=== PATIENT | male | born 1995 | race Asian ===

== ENCOUNTER 2020-08-01 18:31 | Inpatient (IN) ==
--- NOTE | 2020-08-01 18:59 | ED Telehealth Note ---
Telehealth Telehealth Telehealth Options: 2-way audio and video For the duration of the visit, provider was performing the assessment from: The same facility as the patient After establishing a telemedicine visit, patient was: Patient was verified with two unique identifiers Total Time Spent (minutes): 8 Impression & Plan Acute alcoholic pancreatitis, Abdominal pain, Nausea and vomiting Note/Exam/Outcome Date of Service August 01, 2020 Patient utilized Telehealth today with complaint of generalized upper to left- sided abdominal pain, nausea and vomiting since approximately 9 AM this morning. The patient reports that he has vomited multiple times. He has been unable to keep any fluids or Tylenol down for the pain. The patient admits that he did drink 5 alcoholic drinks last night, including 3 beers and 2 mixed drinks. Upon further questioning, the patient does report moderate alcohol consumption. He denies history of alcohol dependence. Patient also denies history of GI disease. The pain does not radiate into the chest. He reports the pain is worse with deep breathing. Physical exam was limited secondary to this telehealth visit. Based on the patient's symptoms, I did recommend that he come into the emergency department for at least IV hydration, and to check labs. I did express my concern for possible pancreatitis or alcoholic gastritis. The patient agreed to come to the emergency department for further evaluation, and will be driving as he does not have anyone else to bring him. He does not feel that his situation warrants ambulance transport. ED Telehealth Outcome Referred to ED for in person visit Past Med/Surg History Medical History Depression Surgical History No significant past surgical history Social History Smoking Status: Never smoker Preferred Language: Danish marital status: Single current occupational status: student Feels Safe at Home: Yes Allergies No known drug allergies Home Meds Lexapro, pseudoephedrine Results & Data (ED) Laboratory Data Result diagrams: 08/01/20 19:50 08/01/20 19:50 Discharge Plan Visit Data Chief Complaint: Abdominal Pain Stated Complaint: ABD PAIN,VOMITING ED Provider: Jama Marie ED Midlevel Provider: Gerard Howe Discharge Problem: Acute alcoholic pancreatitis, Abdominal pain, Nausea and vomiting Discharge Instructions Interventions: ED Discharge Assessment Last Done: 08/02/20 00:20 Forms Stand Alone Forms: Asya Zvooq Prescriptions Prescriptions: No Action pseudoephedrine HCl [Sudafed] 60 mg Tablet 60 mg PO Q6H PRN (Reason: Congestion) RF: 0 escitalopram oxalate [Lexapro] 10 mg Tablet 15 mg PO QAM RF: 0 Referrals [facility] [Primary Care Provider[facility] - Discharge Problem: Acute alcoholic pancreatitis Qualifiers: Acute pancreatitis complication: no infection or necrosis Qualified Code(s): K85.20 - Alcohol induced acute pancreatitis without necrosis or infection Abdominal pain Qualifiers: Abdominal location: upper abdomen, unspecified Qualified Code(s): R10.10 - Upper abdominal pain, unspecified Nausea and vomiting Qualifiers: Vomiting type: unspecified Vomiting Intractability: non-intractable Qualified Code(s): R11.2 - Nausea with vomiting, unspecified
[2020-08-01] MEDS ORDERED: SODIUM CHLORIDE 0.9% 1000ML 1,000 ML IV STA (19:46)
[2020-08-01] MEDS ORDERED: FAMOTIDINE 20MG/5ML IV PUSH IV STA (19:46)
[2020-08-01] MEDS ORDERED: ONDANSETRON INJ 2 MG/ML 2 ML VIAL IV STA (19:46)
[2020-08-01] MEDS ORDERED: ACETAMINOPHEN 1000 MG/100 ML IV IV ONE (19:47)
[2020-08-01 20:03] LABS: Basophils # (auto) 0.02 K/uL (0-0.2); Basophils % (auto) 0.1 %; Hematocrit (blood only) 45.9 % (42-52); Hemoglobin 16.6 g/dL (14.0-18.0); Immature Granulocytes # (auto) 0.06 K/uL (0.00-0.02); Immature Granulocytes % (auto) 0.4 %; Lymphocytes % (auto) 6.3 %; Mean Corpuscular Hemoglobin 32.8 pg (25-34); Mean Corpuscular Hgb Conc 36.2 g/dL (32-36); Mean Corpuscular Volume 90.7 fL (80-100); Mean Platelet Volume 10.4 fL (7.4-10.4); Monocytes # (auto) 0.06 K/uL (0.11-0.59); Monocytes % (auto) 0.4 %; Neutrophils # (auto) 14.71 K/uL (1.4-6.5); Neutrophils % (auto) 92.8 %; Platelet Count 231 K/uL (130-400); RDW Coefficient of Variation 12.3 % (11.5-14.5); RDW Standard Deviation 40.9 fL (36.4-46.3); Red Blood Count 5.06 M/uL (4.7-6.1); White Blood Count 15.85 K/uL (4.8-10.8)
[2020-08-01 20:16] LABS: INR 1.1 (0.9-1.1); Partial Thromboplastin Ratio 0.9; Prothrombin Time 11.1 Seconds (9.0-12.0)
[2020-08-01 20:19] LABS: Albumin Level 4.7 gm/dl (3.4-5.0); BUN Creatinine Ratio 15.4 (10-20); Calcium 9.2 mg/dl (8.5-10.1); Creatinine Clr Calc Pharmacy 114.7 ml/min; Est GFR (African American) 114.8; Est GFR (Non-African American) 99.1; Magnesium 1.7 mg/dl (1.8-2.4); Potassium 3.8 mmol/L (3.5-5.1)
[2020-08-01 20:22] LABS: Albumin Globulin Ratio 1.3 (0.9-2); Bilirubin,Total 1.5 mg/dl (0.2-1); Globulin 3.5 gm/dl (2.5-4.0); Total Protein 8.2 gm/dl (6.4-8.2)
[2020-08-01] MEDS ORDERED: OPTIRAY 320 100ml IV ONE (20:39)
[2020-08-01] MEDS ORDERED: MoRPHine SULFATE 4 MG/ML 1 ML CARP\\VIAL IV STA ×2 (21:24→22:36)
[2020-08-01 22:44] LABS: Influenza A virus by PCR Negative (Neg); Influenza B virus by PCR Negative (Neg); RSV by PCR Negative (Neg); SARS CoV2 RNA(COVID-19) InHosp NEGATIVE (Negative)
--- NOTE | 2020-08-01 22:47 | Emergency Department Note ---
History of Present Illness General Chief complaint: Abdominal Pain Stated complaint: ABD PAIN,VOMITING Time Seen by Provider: 08/01/20 18:43 History of Present Illness Maximum Pain Intensity: 5 25-year-old male who presents to the emergency department after undergoing a Telehealth visit with me a short while ago. Patient presents with complaint of epigastric to left upper abdominal pain, nausea and vomiting. He has been unable to keep any fluids or Tylenol down for the pain. The patient admits to drinking alcohol last night. Upon further questioning, the patient reports that he does drink a moderate amount of alcohol. He denies any history of alcohol dependence. The patient denies any pain radiating into the chest or back. The patient was able to drive here for further evaluation. He currently rates his discomfort a 7 out of 10. The patient denies prior history of GI disease or abdominal surgeries. He also denies any family history of GI disease. Home Medications Medication Instructions Recorded Confirmed Type escitalopram oxalate [Lexapro] 15 mg PO QAM 08/01/20 08/01/20 History pseudoephedrine HCl [Sudafed] 60 mg PO Q6H PRN 08/01/20 08/01/20 History Allergies Allergy/AdvReac Type Severity Reaction Status Date / Time No Known Allergies Allergy Unverified 08/01/20 20:09 Past Med/Surg History Medical History Depression Surgical History No significant past surgical history Social History Smoking Status: Never smoker Preferred Language: Turkmen marital status: Single current occupational status: student Feels Safe at Home: Yes Review of Systems 10 system review was performed and was negative except for pertinent positives and negatives as indicated in history of present illness Physical Exam Vital Signs Vital Signs - 24 hr 08/01/20 19:14 08/01/20 20:00 08/01/20 21:00 Temperature 35.9 C L Temperature Source Temporal Artery Scan Pulse Rate 72 63 75 Pulse Rate from SpO2 Sensor 62 76 Respiratory Rate 18 19 14 Respiratory Effort / Characteristics Non-Labored Respiratory Depth Normal Blood Pressure 121/81 142/81 H 139/88 Blood Pressure Mean 94 101 105 Pulse Oximetry 95 97 97 Oxygen Delivery Method Room Air Sepsis Recent Fever Within 48 Hours No Sepsis New/Unexplained Change in Mental Status No Sepsis Action Taken by Nursing No Action Required 08/01/20 21:30 08/01/20 22:00 08/01/20 22:30 Temperature Temperature Source Pulse Rate 67 61 71 Pulse Rate from SpO2 Sensor 66 61 71 Respiratory Rate 12 15 15 Respiratory Effort / Characteristics Respiratory Depth Blood Pressure 147/89 H 147/90 H 148/84 H Blood Pressure Mean 108 109 105 Pulse Oximetry 97 95 97 Oxygen Delivery Method Sepsis Recent Fever Within 48 Hours Sepsis New/Unexplained Change in Mental Status Sepsis Action Taken by Nursing 08/01/20 23:00 08/01/20 23:30 08/02/20 00:00 Temperature Temperature Source Pulse Rate 64 61 65 Pulse Rate from SpO2 Sensor 65 63 68 Respiratory Rate 16 17 16 Respiratory Effort / Characteristics Respiratory Depth Blood Pressure 132/83 136/83 141/86 H Blood Pressure Mean 99 100 104 Pulse Oximetry 93 95 96 Oxygen Delivery Method Room Air Room Air Room Air Sepsis Recent Fever Within 48 Hours Sepsis New/Unexplained Change in Mental Status Sepsis Action Taken by Nursing CONSTITUTIONAL: Healthy and well nourished. Patient appears in moderate discomfort. HEENT: Normocephalic, atraumatic. No scleral icterus or conjunctival injection/pallor. Mucous membranes are dry. No tonsillar hypertrophy or exudates. NECK: Full active range of motion without discomfort. LYMPHATICS: No cervical chain adenopathy. RESPIRATORY: Clear to auscultation bilaterally with no wheezing, crackles, rhonchi or stridor. Deep breathing worsens the patient's discomfort. CARDIOVASCULAR: Regular rate and rhythm with no murmurs, rubs or gallops. GASTROINTESTINAL: Bowel sounds present in all quadrants. Patient has notable abdominal tenderness to palpation, mostly within the epigastric and left upper quadrant region. Mild guarding is noted without rebound. Negative McBurney's point tenderness. Negative CVA tenderness. MUSCULOSKELETAL: Full range of motion of all joints without discomfort. INTEGUMENTARY: No rash or other significant dermatologic conditions noted. HEMATOLOGIC: No ecchymosis or petechiae. PSYCHIATRIC: Flat affect. NEUROLOGIC: No focal neurologic deficits noted. Course Course Patient history and physical exam were performed. Nurses notes were reviewed. Vital signs were reviewed. The patient is mildly hypothermic, otherwise is not tachycardic, hypertensive or hypoxic. IV access was established, and labs were drawn. The patient was hydrated with a liter normal saline, and administered IV Zofran, Pepcid and Tylenol. Review of labs shows a moderate leukocytosis with left shift and bandemia. The patient has a significantly elevated lipase of 10,845. Remaining CMP is otherwise grossly normal with normal LFTs. Ethyl alcohol level was undetectable. COVID-[address] with IV contrast of the abdomen and pelvis shows evidence for interstitial pancreatitis. Findings were discussed with the patient, who reported worsening symptoms. He did request something stronger for the pain, and was administered IV morphine 4 mg x 2 doses. Given his symptoms, I did recommend hospitalist evaluation, and the patient was in agreement. The case was discussed with Dr. Marie, ED attending physician, who agrees with this plan of care. The case was then further discussed with the [facility] hospitalist service. Please see their dictation for further treatment and final disposition. Administered Medications Lactated Ringer's (Lr) 1,500 mls @ 999 mls/hr IV .Q1H31M ONE Stop: 08/02/20 00:37 Last Admin: 08/01/20 23:35 Dose: 999 mls/hr Documented by: [id number] Discontinued Medications Acetaminophen (Acetaminophen 1000 Mg/100 Ml Iv) 1,000 mg IV ONE ONE Stop: 08/01/20 19:48 Last Admin: 08/01/20 19:51 Dose: 1,000 mg Documented by: [id number] Famotidine (Famotidine 20mg/5ml Iv Push) 20 mg IV ONE STA Stop: 08/01/20 19:47 Last Admin: 08/01/20 19:51 Dose: 20 mg Documented by: [id number] Sodium Chloride (Nss 1000ml) 1,000 mls @ 999 mls/hr IV .Q1H1M STA Stop: 08/01/20 20:46 Last Infusion: 08/01/20 20:56 Dose: 0 mls/hr Documented by: [id number] Admin: 08/01/20 19:51 Dose: 999 mls/hr Documented by: [id number] Ioversol (Ioversol 100ml) 94 ml IV ONCE ONE Stop: 08/01/20 20:40 Last Admin: 08/01/20 20:39 Dose: 94 ml Documented by: [id number] Morphine Sulfate (Morphine Sulfate 4 Mg/Ml 1 Ml Carp\Vial) 4 mg IV NOW STA Stop: 08/01/20 21:25 Last Admin: 08/01/20 21:46 Dose: 4 mg Documented by: [id number] Morphine Sulfate (Morphine Sulfate 4 Mg/Ml 1 Ml Carp\Vial) 4 mg IV NOW STA Stop: 08/01/20 22:37 Last Admin: 08/01/20 22:41 Dose: 4 mg Documented by: [id number] Ondansetron HCl (Ondansetron Inj 2 Mg/Ml 2 Ml Vial) 4 mg IV NOW STA Stop: 08/01/20 19:47 Last Admin: 08/01/20 19:51 Dose: 4 mg Documented by: [id number] Medical Decision Making Medical Records Attestation: I reviewed the patient's medical records. Home Medications Current Medication List: was personally reviewed by me Laboratory Data Attestation: I reviewed the patient's lab results. Result diagrams: 08/01/20 19:50 08/01/20 19:50 Lab Results 08/01/20 08/01/20 08/01/20 Range/Units 19:50 19:50 19:50 WBC 15.85 H (4.8-10.8) K/uL RBC 5.06 (4.7-6.1) M/uL Hgb 16.6 (14.0-18.0) g/dL Hct 45.9 (42-52) % MCV 90.7 (80-100) fL MCH 32.8 (25-34) pg MCHC 36.2 H (32-36) g/dL RDW Std Deviation 40.9 (36.4-46.3) fL RDW Coeff of Jl 12.3 (11.5-14.5) % Plt Count 231 (130-400) K/uL MPV 10.4 (7.4-10.4) fL Immature Gran % (Auto) 0.4 % Neut % (Auto) 92.8 % Lymph % (Auto) 6.3 % [place] % (Auto) 0.4 % Eos % (Auto) 0.0 % Baso % (Auto) 0.1 % Neut # (Auto) 14.71 H (1.4-6.5) K/uL Lymph # (Auto) 1.00 L (1.2-3.4) K/uL [place] # (Auto) 0.06 L (0.11-0.59) K/uL Eos # (Auto) 0.00 (0-0.5) K/uL Baso # (Auto) 0.02 (0-0.2) K/uL Immature Gran # (Auto) 0.06 H (0.00-0.02) K/uL PT 11.1 (9.0-12.0) Seconds INR 1.1 (0.9-1.1) APTT 23.0 (21.0-31.0) Seconds PTT Ratio 0.9 Sodium 138 (136-145) mmol/L Potassium 3.8 (3.5-5.1) mmol/L Chloride 106 (98-107) mmol/L Carbon Dioxide 24 (21-32) mmol/L Anion Gap 8.0 (3-11) BUN 16 (7-18) mg/dl Creatinine 1.03 (0.6-1.4) mg/dl Est Cr Clr Drug Dosing 114.7 ml/min Est GFR ( Amer) 114.8 Est GFR (Non-Af Amer) 99.1 BUN/Creatinine Ratio 15.4 (10-20) Glucose 115 H (70-99) mg/dl Calcium 9.2 (8.5-10.1) mg/dl Magnesium 1.7 L (1.8-2.4) mg/dl Total Bilirubin 1.5 H (0.2-1) mg/dl AST 30 (15-37) U/L ALT 55 (12-78) U/L Alkaline Phosphatase 80 (45-117) U/L Lactate Dehydrogenase (87-241) U/L Total Protein 8.2 (6.4-8.2) gm/dl Albumin 4.7 (3.4-5.0) gm/dl Globulin 3.5 (2.5-4.0) gm/dl Albumin/Globulin Ratio 1.3 (0.9-2) Lipase 20542 H (73-393) U/L Ethyl Alcohol mg/dL (0-3) mg/dl COVID-19 Eval Order SARS-CoV-2 (PCR) (Negative) Influenza Type A (PCR) (Neg) Influenza Type B (PCR) (Neg) RSV (RT-PCR) (Neg) 08/01/20 08/01/20 08/01/20 Range/Units 21:48 21:48 22:22 WBC (4.8-10.8) K/uL RBC (4.7-6.1) M/uL Hgb (14.0-18.0) g/dL Hct (42-52) % MCV (80-100) fL MCH (25-34) pg MCHC (32-36) g/dL RDW Std Deviation (36.4-46.3) fL RDW Coeff of Jl (11.5-14.5) % Plt Count (130-400) K/uL MPV (7.4-10.4) fL Immature Gran % (Auto) % Neut % (Auto) % Lymph % (Auto) % [place] % (Auto) % Eos % (Auto) % Baso % (Auto) % Neut # (Auto) (1.4-6.5) K/uL Lymph # (Auto) (1.2-3.4) K/uL [place] # (Auto) (0.11-0.59) K/uL Eos # (Auto) (0-0.5) K/uL Baso # (Auto) (0-0.2) K/uL Immature Gran # (Auto) (0.00-0.02) K/uL PT (9.0-12.0) Seconds INR (0.9-1.1) APTT (21.0-31.0) Seconds PTT Ratio Sodium (136-145) mmol/L Potassium (3.5-5.1) mmol/L Chloride (98-107) mmol/L Carbon Dioxide (21-32) mmol/L Anion Gap (3-11) BUN (7-18) mg/dl Creatinine (0.6-1.4) mg/dl Est Cr Clr Drug Dosing ml/min Est GFR ( Amer) Est GFR (Non-Af Amer) BUN/Creatinine Ratio (10-20) Glucose (70-99) mg/dl Calcium (8.5-10.1) mg/dl Magnesium (1.8-2.4) mg/dl Total Bilirubin (0.2-1) mg/dl AST (15-37) U/L ALT (12-78) U/L Alkaline Phosphatase (45-117) U/L Lactate Dehydrogenase 220 (87-241) U/L Total Protein (6.4-8.2) gm/dl Albumin (3.4-5.0) gm/dl Globulin (2.5-4.0) gm/dl Albumin/Globulin Ratio (0.9-2) Lipase (73-393) U/L Ethyl Alcohol mg/dL (0-3) mg/dl COVID-19 Eval Order CovFluRsv at [facility] SARS-CoV-2 (PCR) NEGATIVE (Negative) Influenza Type A (PCR) Negative (Neg) Influenza Type B (PCR) Negative (Neg) RSV (RT-PCR) Negative (Neg) 08/01/20 Range/Units 22:22 WBC (4.8-10.8) K/uL RBC (4.7-6.1) M/uL Hgb (14.0-18.0) g/dL Hct (42-52) % MCV (80-100) fL MCH (25-34) pg MCHC (32-36) g/dL RDW Std Deviation (36.4-46.3) fL RDW Coeff of Jl (11.5-14.5) % Plt Count (130-400) K/uL MPV (7.4-10.4) fL Immature Gran % (Auto) % Neut % (Auto) % Lymph % (Auto) % [place] % (Auto) % Eos % (Auto) % Baso % (Auto) % Neut # (Auto) (1.4-6.5) K/uL Lymph # (Auto) (1.2-3.4) K/uL [place] # (Auto) (0.11-0.59) K/uL Eos # (Auto) (0-0.5) K/uL Baso # (Auto) (0-0.2) K/uL Immature Gran # (Auto) (0.00-0.02) K/uL PT (9.0-12.0) Seconds INR (0.9-1.1) APTT (21.0-31.0) Seconds PTT Ratio Sodium (136-145) mmol/L Potassium (3.5-5.1) mmol/L Chloride (98-107) mmol/L Carbon Dioxide (21-32) mmol/L Anion Gap (3-11) BUN (7-18) mg/dl Creatinine (0.6-1.4) mg/dl Est Cr Clr Drug Dosing ml/min Est GFR ( Amer) Est GFR (Non-Af Amer) BUN/Creatinine Ratio (10-20) Glucose (70-99) mg/dl Calcium (8.5-10.1) mg/dl Magnesium (1.8-2.4) mg/dl Total Bilirubin (0.2-1) mg/dl AST (15-37) U/L ALT (12-78) U/L Alkaline Phosphatase (45-117) U/L Lactate Dehydrogenase (87-241) U/L Total Protein (6.4-8.2) gm/dl Albumin (3.4-5.0) gm/dl Globulin (2.5-4.0) gm/dl Albumin/Globulin Ratio (0.9-2) Lipase (73-393) U/L Ethyl Alcohol mg/dL < 3.0 (0-3) mg/dl COVID-19 Eval Order SARS-CoV-2 (PCR) (Negative) Influenza Type A (PCR) (Neg) Influenza Type B (PCR) (Neg) RSV (RT-PCR) (Neg) Imaging Data Attestation: I personally reviewed and interpreted this imaging study as follows: My Impression: My interpretation of a CT with IV contrast of the abdomen and pelvis shows evidence for acute pancreatitis, and no other acute intra-abdominal findings. [facility] report was also reviewed, and is attached for reader convenience. Our hospital radiologist report is pending. Radiologist's Impression: CT ABDOMEN & PELVIS With Contrast: Acute interstitial pancreatitis. No grossly evident parenchymal necrosis. Moderate inflammatory changes. No obstructing stone or ductal dilatation. No loculated fluid collection. Hepatic steatosis. Remainder of the solid organs and GI tract are unremarkable. Normal appendix. Radiologist: Humberto Eaton MD Blood Pressure Blood Pressure Findings: Normal blood pressure MDM Narrative Patient presents to the emergency department with complaint of epigastric/left upper quadrant abdominal pain, nausea and vomiting. The patient did drink a moderate amount of alcohol last night, and does admit to moderate alcohol use. Patient does have an elevated lipase and CT findings consistent with acute pancreatitis. Ethyl alcohol levels at the time of hospital evaluation was undetectable. Additional laboratories are not suggestive of cholecystitis or hepatitis. CT imaging does not show evidence for acute diverticulitis, appendicitis or other acute intra-abdominal findings. Impression & Plan Acute alcoholic pancreatitis, Abdominal pain, Nausea and vomiting Discharge Plan Visit Data Chief Complaint: Abdominal Pain Stated Complaint: ABD PAIN,VOMITING ED Provider: Jama Marie ED Midlevel Provider: Gerard Howe Discharge Problem: Acute alcoholic pancreatitis, Abdominal pain, Nausea and vomiting Discharge Instructions Interventions: ED Discharge Assessment Last Done: 08/02/20 00:20 Forms Stand Alone Forms: [employer] Prescriptions Prescriptions: No Action pseudoephedrine HCl [Sudafed] 60 mg Tablet 60 mg PO Q6H PRN (Reason: Congestion) RF: 0 escitalopram oxalate [Lexapro] 10 mg Tablet 15 mg PO QAM RF: 0 Referrals Referrals: [place] [Primary Care Provider] - Discharge Problem: Acute alcoholic pancreatitis Qualifiers: Acute pancreatitis complication: no infection or necrosis Qualified Code(s): K85.20 - Alcohol induced acute pancreatitis without necrosis or infection Abdominal pain Qualifiers: Abdominal location: upper abdomen, unspecified Qualified Code(s): R10.10 - Upper abdominal pain, unspecified Nausea and vomiting Qualifiers: Vomiting type: unspecified Vomiting Intractability: non-intractable Qualified Code(s): R11.2 - Nausea with vomiting, unspecified
[2020-08-01] MEDS ORDERED: LACTATED RINGER'S 1,500 ML IV ONE (23:07)
--- NOTE | 2020-08-01 23:08 | History & Physical Report ---
Date of Service August 01, 2020 Assessment & Plan (1) Acute pancreatitis: Patient is a 25 year old male with PMHx exercise induced asthma, Depression, and Allergic rhinitis that presents with nausea, vomiting, and abdominal pain since 9AM on day of admission. Acute Pancreatitis secondary to Alcohol Abuse -CT scan [facility] noting acute interstitial pancreatitis without evidence of necrosis or loculated fluid collection. -Lipase on admission [id number] in addition to elevated bilirubin 1.5 -[place] Criteria 0 on admission with no leukocytosis, age <55, glucose <200, AST< 2250, LDH <350, can recheck 48 hours into admission if still present. -Given IVF 30ml/kg in the ED -Will continue with fluids LR 200ml/hr x3L -Pain control morphine IV -Zofran PRN nausea -NPO with sips and chips at this time, but advance diet as tolerated. Alcohol Abuse -Last drink midnight of 08/01/20 -AWSS protocol with ativan pushes PRN -Folate and B12 labs in the AM -Continue to monitor for signs of withdrawal -Alcohol on admission <3 Hypomagnesemia -1.7 on admission -Will replete via IV 2g Mag -Recheck in AM Depression -Continue home Lexapro Dispo: Med/Surg for IVF, monitoring for alcohol withdrawal, and IV pain medication FEN: NPO OK for sips and ice chips and meds, advance as tolerated DVT: Lovenox Code: Full (2) Abdominal pain: (3) Depression: (4) Nausea and vomiting: (5) Alcohol abuse: History of Present Illness Chief Complaint: Abdominal Pain Primary Care Provider: [facility] Patient is a 25 year old male with PMHx exercise induced asthma, Depression, and Allergic rhinitis that presents with nausea, vomiting, and abdominal pain since 9AM on day of admission. Patient notes that he has had similar pain in the past a few months ago and [facility] on day 3 of 5 of his pain at that time. He states that he does have a history of alcohol use, typically 1-2 drinks every other day, however, for the past week has been drinking 4-5 beers/mixed drinks daily due to increased stress of his school work. 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 He notes that his last drink was at midnight of 08/01/20 (~22 hours prior to ED arrival). Currently patient notes that his abdominal pain is a 5/10, improved from 7/10 on arrival, and that his nausea has resolved. He denies any chest pain, chest pressure, SOB, fever, chills, headache, visual changes. Med Hx: Exercise induced Asthma, Depression, Allergic rhinitis Surg Hx: R ankle repair Soc Hx: No tobacco or illicit drug use. Typically has 1-2 drinks every other day, more recently 4-5 drinks daily Allergies Allergy/AdvReac Type Severity Reaction Status Date / Time No Known Allergies Allergy Unverified 08/01/20 20:09 Home Medications Medication Instructions Recorded Confirmed Type escitalopram oxalate [Lexapro] 15 mg PO QAM 08/01/20 08/01/20 History pseudoephedrine HCl [Sudafed] 60 mg PO Q6H PRN 08/01/20 08/01/20 History Past Med/Surg History Medical History Depression Surgical History No significant past surgical history Social History Smoking Status: Never smoker Second Hand Exposure: No; Do You Dip or Chew Tobacco: No; Hx Alcohol Use: Yes Alcohol type: beer and hard liquor Hx Substance Use: No Preferred Language: Icelandic Communication Ability: Effective 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 Beliefs That Will Affect Care: None marital status: Single Current Living Situation: Alone current occupational status: student Other Information That Helps Us Care for You: No Feels Safe at Home: Yes Safety Concerns: Feels Safe At This Time Assistive Devices: None Review of Systems Review of Systems: All systems reviewed & are unremarkable except as noted in Subjective Physical Exam Constitutional: WD/WN, vitals as above Eyes: PERRL, conjunctivae normal, anicteric sclerae ENMT: external ear and nose normal, oropharynx normal Respiratory: normal respiratory effort, lungs clear to auscultation Cardiovascular: RRR, no murmur, no edema Gastrointestinal (Abdomen): Inspection/Auscultation: abdomen normal to inspection and normal bowel sounds; abdomen not distended Percussion/Palpation: + abdomen tender (TTP throughout worse in the LUQ ) and abdomen soft; no guarding and abdomen not rigid Musculoskeletal: no cyanosis or clubbing, extremities motor strength 5/5 Skin: no rashes, warm and dry Neurologic: PERRL, EOMI, accommodation nl, no face palsy, no dysarthria Psychiatric: A+Ox3, euthymic affect Results & Data Results & Data ([place]) Vital Signs (Past 12 Hours) Vital Signs Temp Pulse Resp BP Pulse Ox 08/01/20 22:30 71 15 148/84 H 97 08/01/20 22:00 61 15 147/90 H 95 08/01/20 21:30 67 12 147/89 H 97 08/01/20 21:00 75 14 139/88 97 08/01/20 20:00 63 19 142/81 H 97 08/01/20 19:14 35.9 C L 72 18 121/81 95 Code Status & VTE Plan VTE Prophylaxis Plan VTE Prophylaxis will be ordered: Yes Supervising Physician Co-Signing Physician Notes Attending addendum: I have physically seen this patient, have supervised the medical residents activities, and agree with the H&P unless as otherwise noted. Assessment and Plan: Alcoholic pancreatitis- CT suggestive of acute interstitial pancreatitis. Lipase upon admission 10,845 Adjust IV fluid bolus to stand at 30 mils per kilo, and then continue LR at 200 mils per hour Zofran 4 mg IV every 6 hours as needed Famotidine 40 mg IV every 12 hours Alcohol abuse- AWSS protocol with IV Ativan Thiamine 100 mg p.o. every morning Folic acid 1 mg p.o. every morning Nephrocaps 1 p.o. daily Counseling Remaining orders and notations as noted Resident Activity Tracking Resident Involvement: Resident Care Provided Care Provided: Adult Hospital Medicine
[2020-08-02] MEDS ORDERED: LORazepam 1 MG/2 ML VIAL IV PRN (00:32)
[2020-08-02] MEDS ORDERED: MoRPHine SULFATE 2 MG/ML CARP IV PRN (00:32)
[2020-08-02] MEDS ORDERED: ONDANSETRON INJ 2 MG/ML 2 ML VIAL IV PRN (00:32)
[2020-08-02] MEDS: LACTATED RINGER'S 1,000 ML IV SCH ×5 (00:41→22:00)
[2020-08-02] MEDS: MoRPHine SULFATE 4 MG/ML 1 ML CARP\\VIAL IV PRN ×2 (00:47→04:29)
[2020-08-02] MEDS: MAGNESIUM SULFATE / D5W 1 GM/100 ML BAG IV SCH ×2 (00:47→02:37)
[2020-08-02 06:09] LABS: Basophils # (auto) 0.01 K/uL (0-0.2); Basophils % (auto) 0.1 %; Eosinophils # (auto) 0.01 K/uL (0-0.5); Eosinophils % (auto) 0.1 %; Hematocrit (blood only) 42.4 % (42-52); Hemoglobin 14.8 g/dL (14.0-18.0); Immature Granulocytes # (auto) 0.05 K/uL (0.00-0.02); Immature Granulocytes % (auto) 0.3 %; Lymphocytes # (auto) 1.64 K/uL (1.2-3.4); Lymphocytes % (auto) 10.1 %; Mean Corpuscular Hemoglobin 32.3 pg (25-34); Mean Corpuscular Hgb Conc 34.9 g/dL (32-36); Mean Corpuscular Volume 92.6 fL (80-100); Mean Platelet Volume 10.6 fL (7.4-10.4); Monocytes # (auto) 0.84 K/uL (0.11-0.59); Monocytes % (auto) 5.2 %; Neutrophils # (auto) 13.71 K/uL (1.4-6.5); Neutrophils % (auto) 84.2 %; Platelet Count 184 K/uL (130-400); RDW Coefficient of Variation 12.5 % (11.5-14.5); RDW Standard Deviation 42.2 fL (36.4-46.3); Red Blood Count 4.58 M/uL (4.7-6.1); White Blood Count 16.26 K/uL (4.8-10.8)
--- NOTE | 2020-08-02 06:32 | CT Scan Report ---
CT abd pelvis IV con only CLINICAL HISTORY: Upper quadrant abdominal pain COMPARISON STUDY: None. TECHNIQUE: The patient was scanned in a dynamic helical fashion during intravenous administration of 94 cc of Optiray 320 A dose lowering technique was utilized adhering to the principles of ALARA. CT DOSE: 430.12 mGy.cm FINDINGS: Lower chest: The heart is normal in size and configuration, without pericardial effusion. The lung ba ses and pleural spaces are clear. Liver: There is probable hepatic steatosis. No focal hepatic masses are visualized. The hepatic and p ortal veins appear patent. Gallbladder: Unremarkable. Spleen: Normal in size and attenuation. Pancreas: The pancreas appears edematous. There is peripancreatic fluid. The findings are consistent with acute interstitial pancreatitis. Adrenal glands: Unremarkable. Kidneys: There is symmetric renal cortical enhancement. The kidneys are normal in size without hydron ephrosis. Bowel: There are no transition zones indicate bowel obstruction. There is no evidence of acute divert iculitis. The appendix is normal. Peritoneum: There is a small amount of free pelvic fluid. There is a small amount of fluid within the paracolic gutters. Vasculature: The abdominal aorta is normal in course and caliber. Adenopathy: None. Pelvic viscera: The bladder, and pelvic viscera are unremarkable. Skeletal structures: No destructive osseous lesions are seen. IMPRESSION: 1. No evidence of bowel obstruction. No evidence of free air 2. Normal appendix 3. CT findings indicative of acute interstitial pancreatitis. Correlation with amylase and lipase rec ommended 4. Mild hepatic steatosis ACT 112: Negative or not required by law. Electronically signed by: Eros Wilson M.D. 08/02/2020 6:30 AM
[2020-08-02 06:45] LABS: Albumin Level 3.7 gm/dl (3.4-5.0); BUN Creatinine Ratio 19.3 (10-20); Calcium 8.1 mg/dl (8.5-10.1); Creatinine Clr Calc Pharmacy 161.7 ml/min; Est GFR (African American) 142.6; Est GFR (Non-African American) 123.1; Magnesium 2.3 mg/dl (1.8-2.4); Potassium 3.6 mmol/L (3.5-5.1)
[2020-08-02 06:48] LABS: Albumin Globulin Ratio 1.2 (0.9-2); Bilirubin,Total 1.5 mg/dl (0.2-1); Total Protein 6.7 gm/dl (6.4-8.2)
[2020-08-02 07:03] LABS: Folate (Folic Acid) 6.9 ng/ml (>5.38)
[2020-08-02] MEDS: ESCITALOPRAM OXALATE 10 MG TAB PO SCH (08:35)
[2020-08-02] MEDS: ENOXAPARIN INJ 40 MG/0.4 ML SYR SQ SCH (08:35)
--- NOTE | 2020-08-02 17:25 | Hospitalist Progress Note ---
Date of Service August 02, 2020 Assessment & Plan (1) Acute pancreatitis: Patient's Eddie score is 2 No vomiting or nausea Currently not on antibiotics IV fluids have timed out. We will restart lactated Ringer's at 200 mL/h No hypercalcemia Follow patient's LFTs, lipase, PRP, CBC Check an amylase in the morning Convert morphine to Dilaudid to decrease risk of obstipation If pain not controlled with as needed dosing of Dilaudid, low threshold for MUSHR[employer]OM F[employer]ER with Dilaudid If patient develops fever or Eddie score increases, consider blood cultures, urine culture, LDH (2) Alcohol abuse: Patient states occasional use of alcohol Previous use also resulted in pancreatitis and hospitalization Advised patient to abstain completely from ethanol ingestion (3) Depression: Appeared emotionally stable at the time of my examination Continue Lexapro (4) DVT prophylaxis: Ambulate as tolerated Out of bed to chair as tolerated Lovenox 40 mg subcu daily Admission and Anticipated Discharge Date Admission Date: August 01, 2020 Subjective Attending: Dr. Sanchez Patient seen and examined at bedside. He continues to have significant abdominal pain. He has difficulty sitting up secondary to pain. He denies any fever or chills. He has no diarrhea. He denies any nausea or vomiting. He states that he Had pancreatitis one other time also associated with drinking.He has no history of malignancy. No history of pancreatic cancer with his family.He has no other acute complaints at this time. Review of Systems Review of Systems: All systems reviewed & are unremarkable except as noted in Subjective Physical Exam Physical Exam: GENERAL : Patient appears ill. He has difficulty sitting up secondary to abdominal pain. EYES: No icterus, gaze conjugate NOSE: No evidence of epistaxis MOUTH: No lesions or candidiasis NECK: Supple LUNGS: CTA B/L, no wheezes, rales or rhonchi HEART: Regular, rate controlled ABDOMEN: Soft, ND, BS Present. Tender to light palpation in the left upper quadrant. Also tender to percussion EXTREMITIES: No LE edema, pedal pulses intact NEURO: A&OX3 Results & Data Results & Data ([facility]) Vital Signs (Past 12 Hours) Vital Signs Temp Pulse Resp BP Pulse Ox 08/02/20 15:02 37.1 C 82 16 127/76 96 08/02/20 07:22 36.4 C L 67 16 136/78 96 Laboratory Results 08/02/20 05:45 08/02/20 05:45 Laboratory Tests 08/01/20 08/02/20 19:50 05:45 Lipase [address] H [address] abd pelvis IV con only CLINICAL HISTORY: Upper quadrant abdominal pain COMPARISON STUDY: None. TECHNIQUE: The patient was scanned in a dynamic helical fashion during intravenous administration of 94 cc of Optiray 320 A dose lowering technique was utilized adhering to the principles of ALARA. CT DOSE: 430.12 mGy.cm FINDINGS: Lower chest: The heart is normal in size and configuration, without pericardial effusion. The lung bases and pleural spaces are clear. Liver: There is probable hepatic steatosis. No focal hepatic masses are visualized. The hepatic and portal veins appear patent. Gallbladder: Unremarkable. Spleen: Normal in size and attenuation. Pancreas: The pancreas appears edematous. There is peripancreatic fluid. The findings are consistent with acute interstitial pancreatitis. Adrenal glands: Unremarkable. Kidneys: There is symmetric renal cortical enhancement. The kidneys are normal in size without hydronephrosis. Bowel: There are no transition zones indicate bowel obstruction. There is no evidence of acute diverticulitis. The appendix is normal. Peritoneum: There is a small amount of free pelvic fluid. There is a small amount of fluid within the paracolic gutters. Vasculature: The abdominal aorta is normal in course and caliber. Adenopathy: None. Pelvic viscera: The bladder, and pelvic viscera are unremarkable. Skeletal structures: No destructive osseous lesions are seen. IMPRESSION: 1. No evidence of bowel obstruction. No evidence of free air 2. Normal appendix 3. CT findings indicative of acute interstitial pancreatitis. Correlation with amylase and lipase recommended 4. Mild hepatic steatosis Electronically signed by: Eros Wilson M.D. 08/02/2020 6:30 AM PG Care Time/CCT Total # of Minutes Spent Total Time Spent with Patient: Total time spent is greater than 50% in coordination of care (as documented) at patient's floor/unit and/or counseling patient: Coding Level of Care Code 10078 Subseq Hosp Care Lvl 2 Diagnoses Acute pancreatitis K85.90 Alcohol abuse F10.10 Depression F32.9 DVT prophylaxis Z29.9 Time Spent (min) 30
[2020-08-02] MEDS: HYDROmorphone INJ 0.5 MG/0.5 ML SYR IV PRN (18:04)
[2020-08-02] MEDS: SENNA 8.6 MG TAB PO SCH (18:04)
[2020-08-02] MEDS: DOCUSATE SODIUM 100 MG CAP PO SCH (20:10)
[2020-08-03] MEDS: HYDROmorphone INJ 0.5 MG/0.5 ML SYR IV PRN ×2 (00:24→12:31)
[2020-08-03] MEDS: ACETAMINOPHEN 325 MG TAB PO PRN ×4 (00:25→21:09)
[2020-08-03] MEDS: metroNIDAZOLE 500 MG/100 ML BAG IV SCH ×4 (00:48→23:38)
[2020-08-03] MEDS: CEFEPIME 2,000 MG in SYRINGE 0 ML IV SCH ×3 (00:48→23:38)
[2020-08-03] MEDS: LACTATED RINGER'S 1,000 ML IV SCH ×2 (03:20→09:02)
[2020-08-03 03:27] LABS: Appearance Urine Clear (Clear); Bacteria Urine Automated Negative (Negative); Bilirubin Urine Negative (Negative); Blood Urine Negative (Negative); Color Urine Orange; Glucose Urine UA Negative (Negative); Ketones Urine Negative (Negative); Leukocyte Esterase Urine Negative (Negative); Nitrite Urine Negative (Negative); RBC Urine Automated 0-4 /hpf (0-4); Specific Gravity Urine 1.023 (1.000-1.030); Urobilinogen Urine Negative (Negative); pH Urine 7.5 (4.5-7.5)
[2020-08-03 03:29] LABS: Protein Urine 1+ (Negative)
[2020-08-03 05:44] LABS: Hematocrit (blood only) 38.6 % (42-52); Hemoglobin 13.3 g/dL (14.0-18.0); Mean Corpuscular Hemoglobin 32.4 pg (25-34); Mean Corpuscular Hgb Conc 34.5 g/dL (32-36); Mean Corpuscular Volume 93.9 fL (80-100); Mean Platelet Volume 10.4 fL (7.4-10.4); Platelet Count 167 K/uL (130-400); RDW Coefficient of Variation 12.7 % (11.5-14.5); RDW Standard Deviation 43.4 fL (36.4-46.3); Red Blood Count 4.11 M/uL (4.7-6.1); White Blood Count 15.26 K/uL (4.8-10.8)
--- NOTE | 2020-08-03 06:11 | Billing Data ---
Date of Service August 03, 2020 Coding Level of Care Code 73083 Initial Inpt Care Lvl 3
[2020-08-03 06:15] LABS: BUN Creatinine Ratio 11.4 (10-20); Calcium 7.8 mg/dl (8.5-10.1); Creatinine Clr Calc Pharmacy 163.7 ml/min; Est GFR (African American) 143.4; Est GFR (Non-African American) 123.7; Potassium 3.6 mmol/L (3.5-5.1)
[2020-08-03 06:21] LABS: Bilirubin,Total 2.8 mg/dl (0.2-1); Globulin 3.1 gm/dl (2.5-4.0); Total Protein 6.1 gm/dl (6.4-8.2)
[2020-08-03] MEDS: ESCITALOPRAM OXALATE 10 MG TAB PO SCH (08:32)
[2020-08-03] MEDS: DOCUSATE SODIUM 100 MG CAP PO SCH ×2 (08:32→21:04)
[2020-08-03] MEDS: ENOXAPARIN INJ 40 MG/0.4 ML SYR SQ SCH (08:32)
[2020-08-03] MEDS: SENNA 8.6 MG TAB PO SCH (08:32)
--- NOTE | 2020-08-03 15:08 | Hospitalist Progress Note ---
Date of Service August 03, 2020 Assessment & Plan (1) Acute pancreatitis: Patient is a 25 year old male with PMHx exercise-induced asthma, Depression, and Allergic rhinitis that presents with nausea, vomiting, and abdominal pain, found to have acute pancreatitis based on imaging and elevated lipase Most likely secondary to Alcohol Abuse GB normal on imaging although TBili mildly elevated. Had one previous episode of pancreatitis as an outpt several months ago. No FH of pancreatitis, no offending medications, no hypercalcemia. TG have not been checked-check tomorrow AM Had a low grade fever last evening likely from atelectasis -CT scan noting acute interstitial pancreatitis without evidence of necrosis or loculated fluid collection. -Lipase on admission 56499 in addition to elevated bilirubin 1.5 --> now lipase down to 4000 CLinically improving, hunter low fat diet today which was advanced, pain improved -dc IVFs as is 6L positive -added IS and encouraged OOB to ambulate in hallways -continue Pain control morphine IV -Zofran PRN nausea (2) Abdominal pain: 2/2 pancreatitis as above (3) Depression: stable continue lexapro (4) Nausea and vomiting: resolved (5) Alcohol abuse: drinking 4 drinks daily recently -Last drink midnight of 08/01/20 -AWSS protocol with ativan pushes PRN-none needed -Folate and B12 normal -Continue to monitor for signs of withdrawal -Alcohol on admission <3 -counseled on cessation (6) Hyperbilirubinemia: Tbili 1.5 on admission and now up wto 2.8 but clinically improved no obstruction on CT LFTs otherwise normal -add on DBili likely Gilbert's vs fatty liver seen on CT -follow LFTs (7) Leukocytosis: improving down to 15k from 16 likely secondary to acute pnacreatitis no other infection suspected follow CBC (8) Fever: on evening of 4/4 likely from atelectasis as has not been moving OOB at all -encouraged IS, OOB and ambulate halls UA neg BCxs pending-NGTD continue empiric abx for now but can dc tomorrow if no growth on cxs and continues to improve clinically (9) DVT prophylaxis: Lovenox SQ Dispo-continued stay but possibly dc to home tomorrow Admission and Anticipated Discharge Date Admission Date: August 01, 2020 Subjective Feeling better today. Had a low grade fever last night and had BCxs drawn and started on abx but no fevers today. He has not been OOB and ambulating much at all. Had a BM today. Denies SOB. Tolerated low fat diet for lunch, not using pain meds today Review of Systems Review of Systems: All systems reviewed & are unremarkable except as noted in HPI & below Physical Exam Constitutional: WD/WN, vitals as above Eyes: + anicteric sclerae Neck: trachea midline, no thyromegaly Respiratory: normal respiratory effort, lungs clear to auscultation Cardiovascular: RRR, no murmur, no edema Chest (Breasts): Chest: normal inspection of chest Gastrointestinal (Abdomen): Inspection/Auscultation: normal bowel sounds; abdomen not distended Percussion/Palpation: + abdomen tender (epigastric and LUQ w/o guarding) and abdomen soft; abdomen not rigid Musculoskeletal: Extremities: extremities normal to inspection; no cyanosis and no clubbing Skin: no rashes, warm and dry Neurologic: moves all extremities and awake; no focal motor deficits Psychiatric: A+Ox3, euthymic affect Lymphatic: no lymphedema Results & Data Results & Data ([facility]) Vital Signs (Past 12 Hours) Vital Signs Temp Pulse Resp BP Pulse Ox 08/03/20 07:27 36.9 C 75 15 111/67 94 08/03/20 04:04 37.4 C Laboratory Results 08/03/20 08/03/20 08/03/20 Range/Units 05:22 05:22 05:22 WBC 15.26 H (4.8-10.8) K/uL RBC 4.11 L (4.7-6.1) M/uL Hgb 13.3 L (14.0-18.0) g/dL Hct 38.6 L (42-52) % MCV 93.9 (80-100) fL MCH 32.4 (25-34) pg MCHC 34.5 (32-36) g/dL RDW Std Deviation 43.4 (36.4-46.3) fL RDW Coeff of Jl 12.7 (11.5-14.5) % Plt Count 167 (130-400) K/uL MPV 10.4 (7.4-10.4) fL Sodium 139 (136-145) mmol/L Potassium 3.6 (3.5-5.1) mmol/L Chloride 106 (98-107) mmol/L Carbon Dioxide 31 (21-32) mmol/L Anion Gap 2.0 L (3-11) BUN 9 D (7-18) mg/dl Creatinine 0.78 (0.6-1.4) mg/dl Est Cr Clr Drug Dosing 163.7 ml/min Est GFR ( Amer) 143.4 Est GFR (Non-Af Amer) 123.7 BUN/Creatinine Ratio 11.4 (10-20) Glucose 98 (70-99) mg/dl Calcium 7.8 L (8.5-10.1) mg/dl Total Bilirubin 2.8 H D (0.2-1) mg/dl AST 21 (15-37) U/L ALT 30 (12-78) U/L Alkaline Phosphatase 50 (45-117) U/L Lactate Dehydrogenase 213 (87-241) U/L Total Protein 6.1 L (6.4-8.2) gm/dl Albumin 3.0 L (3.4-5.0) gm/dl Globulin 3.1 (2.5-4.0) gm/dl Albumin/Globulin Ratio 1.0 (0.9-2) Amylase 857 H (25-115) U/L Lipase 4938 H (73-393) U/L Urine Color Urine Appearance (Clear) Urine pH (4.5-7.5) Ur Specific [place] (1.000-1.030) Urine Protein (Negative) Urine Glucose (UA) (Negative) Urine Ketones (Negative) Urine Blood (Negative) Urine Nitrite (Negative) Urine Bilirubin (Negative) Urine Urobilinogen (Negative) Ur Leukocyte Esterase (Negative) Urine WBC (Auto) (0-5) /hpf Urine RBC (Auto) (0-4) /hpf U Hyaline Cast (Auto) (0-5) /lpf U Epithel Cells (Auto) (0-5) /lpf Urine Bacteria (Auto) (Negative) 08/03/20 08/03/20 Range/Units 03:00 00:39 WBC (4.8-10.8) K/uL RBC (4.7-6.1) M/uL Hgb (14.0-18.0) g/dL Hct (42-52) % MCV (80-100) fL MCH (25-34) pg MCHC (32-36) g/dL RDW Std Deviation (36.4-46.3) fL RDW Coeff of Jl (11.5-14.5) % Plt Count (130-400) K/uL MPV (7.4-10.4) fL Sodium (136-145) mmol/L Potassium (3.5-5.1) mmol/L Chloride (98-107) mmol/L Carbon Dioxide (21-32) mmol/L Anion Gap (3-11) BUN (7-18) mg/dl Creatinine (0.6-1.4) mg/dl Est Cr Clr Drug Dosing ml/min Est GFR ( Amer) Est GFR (Non-Af Amer) BUN/Creatinine Ratio (10-20) Glucose (70-99) mg/dl Calcium (8.5-10.1) mg/dl Total Bilirubin (0.2-1) mg/dl AST (15-37) U/L ALT (12-78) U/L Alkaline Phosphatase (45-117) U/L Lactate Dehydrogenase 250 H (87-241) U/L Total Protein (6.4-8.2) gm/dl Albumin (3.4-5.0) gm/dl Globulin (2.5-4.0) gm/dl Albumin/Globulin Ratio (0.9-2) Amylase (25-115) U/L Lipase (73-393) U/L Urine Color Barren Urine Appearance Clear (Clear) Urine pH 7.5 (4.5-7.5) Ur Specific [place] 1.023 (1.000-1.030) Urine Protein 1+ H (Negative) Urine Glucose (UA) Negative (Negative) Urine Ketones Negative (Negative) Urine Blood Negative (Negative) Urine Nitrite Negative (Negative) Urine Bilirubin Negative (Negative) Urine Urobilinogen Negative (Negative) Ur Leukocyte Esterase Negative (Negative) Urine WBC (Auto) 1-5 (0-5) /hpf Urine RBC (Auto) 0-4 (0-4) /hpf U Hyaline Cast (Auto) 1-5 (0-5) /lpf U Epithel Cells (Auto) 10-20 H (0-5) /lpf Urine Bacteria (Auto) Negative (Negative) PG Care Time/CCT Total # of Minutes Spent Total Time Spent with Patient: Total time spent is greater than 50% in coordination of care (as documented) at patient's floor/unit and/or counseling patient: Coding Level of Care Code 18441 Subseq Hosp Care Lvl 3 Diagnoses Acute pancreatitis K85.90 Abdominal pain R10.10 Abdominal location: upper abdomen, unspecified Depression F32.9 Nausea and vomiting R11.2 Vomiting Intractability: non-intractable Vomiting type: unspecified Alcohol abuse F10.10 Hyperbilirubinemia E80.6 Leukocytosis D72.829 Fever R50.9 DVT prophylaxis Z29.9 (1) Nausea and vomiting Vomiting Intractability: non-intractable Vomiting type: unspecified Qualified Code(s): R11.2 - Nausea with vomiting, unspecified (2) Abdominal pain Abdominal location: upper abdomen, unspecified Qualified Code(s): R10.10 - Upper abdominal pain, unspecified
[2020-08-03 18:00] LABS: Bilirubin Direct 0.5 mg/dl (0-0.2)
[2020-08-03] MEDS ORDERED: OPTIRAY 320 100ml IV ONE (19:44)
--- NOTE | 2020-08-03 20:21 | CT Scan Report ---
CT OF THE ABDOMEN AND PELVIS WITH CONTRAST CLINICAL HISTORY: pancreatitis,fevers,assess for necrosis COMPARISON STUDY: CT of the abdomen and pelvis August 01, 2020. TECHNIQUE: Following IV administration of 91 mL of Optiray-320, axial images of the abdomen and pelvi s were obtained from the lung bases to the proximal femurs. Images were reviewed in the axial, sagitt al, and coronal planes. IV contrast was administered without complication. Automated exposure contro l was utilized for the study. A dose lowering technique was utilized adhering to the principles of A RONALD. CT DOSE: 478.73 mGy.cm FINDINGS: Imaged portions of the lower chest partially visualize small bilateral pleural effusions, l eft larger than right, which have developed since CT of August 01, 2020. There is associated bilateral lower lobe atelectasis. No pneumatosis, free air or portal venous gas is present. Hepatic steatosis i s noted. There is no biliary or pancreatic ductal dilatation. The pancreatic body and tail are edemat ous. The gland enhances. There is no evidence for necrosis. Peripancreatic fluid is noted which exten ds into the pelvis. This has increased since CT of August 01, 2020. No well-defined peripancreatic flui d collection is noted. The splenic vein is patent. No pseudoaneurysm is identified on this non-CTA ex am. There is no hydronephrosis. There is no evidence for a bowel obstruction. There is no evidence fo r acute appendicitis. IMPRESSION: 1. Findings consistent with acute pancreatitis. Increase in associated abdominal and pelvic fluid sin ce CT of August 01, 2020. Edematous pancreatic body and tail without evidence for necrosis. 2. Hepatic steatosis. 3. Interval development of small bilateral pleural effusions, left larger than right, with associated atelectasis. ACT 112: Negative or not required by law. Electronically signed by: Ramiro Fong M.D. 08/03/2020 8:20 PM
[2020-08-03] MEDS ORDERED: FUROSEMIDE 20 MG in SYRINGE 0 ML IV ONE (20:45)
[2020-08-04 05:56] LABS: Hematocrit (blood only) 36.9 % (42-52); Hemoglobin 13.1 g/dL (14.0-18.0); Mean Corpuscular Hemoglobin 32.8 pg (25-34); Mean Corpuscular Hgb Conc 35.5 g/dL (32-36); Mean Corpuscular Volume 92.5 fL (80-100); Mean Platelet Volume 10.4 fL (7.4-10.4); Platelet Count 173 K/uL (130-400); RDW Coefficient of Variation 12.1 % (11.5-14.5); RDW Standard Deviation 41.2 fL (36.4-46.3); Red Blood Count 3.99 M/uL (4.7-6.1)
[2020-08-04 06:20] LABS: Albumin Level 3.1 gm/dl (3.4-5.0); BUN Creatinine Ratio 12.9 (10-20); Calcium 7.9 mg/dl (8.5-10.1); Creatinine Clr Calc Pharmacy 157.7 ml/min; Est GFR (African American) 141.2; Est GFR (Non-African American) 121.8; Potassium 3.3 mmol/L (3.5-5.1)
[2020-08-04 06:26] LABS: Bilirubin Direct 0.4 mg/dl (0-0.2); Bilirubin,Total 1.9 mg/dl (0.2-1); Total Protein 6.8 gm/dl (6.4-8.2)
[2020-08-04] MEDS: metroNIDAZOLE 500 MG/100 ML BAG IV SCH ×2 (09:09→16:24)
[2020-08-04] MEDS: SENNA 8.6 MG TAB PO SCH (09:15)
[2020-08-04] MEDS: ESCITALOPRAM OXALATE 10 MG TAB PO SCH (09:15)
[2020-08-04] MEDS: ENOXAPARIN INJ 40 MG/0.4 ML SYR SQ SCH (09:16)
[2020-08-04] MEDS: DOCUSATE SODIUM 100 MG CAP PO SCH ×2 (09:16→20:36)
[2020-08-04] MEDS: CEFEPIME 2,000 MG in SYRINGE 0 ML IV SCH (11:40)
[2020-08-04] MEDS: ACETAMINOPHEN 325 MG TAB PO PRN (15:15)
[2020-08-04] MEDS ORDERED: POTASSIUM CHLORIDE CRTAB 20 MEQ TABCR PO STA (15:59)
[2020-08-04] MEDS ORDERED: FUROSEMIDE 20 MG in SYRINGE 0 ML IV ONE (16:00)
--- NOTE | 2020-08-04 16:11 | Hospitalist Progress Note ---
Date of Service August 04, 2020 Assessment & Plan (1) Acute pancreatitis: Patient is a 25 year old male with PMHx exercise-induced asthma, Depression, and Allergic rhinitis that presents with nausea, vomiting, and abdominal pain, found to have acute pancreatitis based on imaging and elevated lipase Most likely secondary to Alcohol Abuse GB normal on imaging although TBili mildly elevated. Had one previous episode of pancreatitis as an outpt several months ago. No FH of pancreatitis, no offending medications, no hypercalcemia. TG are normal Had a low grade fever two nights in a row--> repeat CT abd/pel performed which showed pancreatitis (no necrosis or pseudocyst) and bilat pleural effusions with associated compressive atelectasis--> fevers likely from atelectasis -Lipase on admission 55850 in addition to elevated bilirubin 1.5 --> now lipase down to 1741 Clinically improving, hunter low fat diet ,pain improved -dcd IVFs as is 6L positive and now diuresing--> gave IV lasix on 08/03 and will give another dose today 08/04 -continue IS and encouraged OOB to ambulate in hallways -continue Pain control morphine IV and tylenol prn -Zofran PRN nausea (2) Abdominal pain: 2/2 pancreatitis as above (3) Depression: stable continue lexapro (4) Nausea and vomiting: resolved (5) Alcohol abuse: drinking 4 drinks daily recently -Last drink midnight of 08/01/20 -AWSS protocol with ativan pushes PRN-none needed -Folate and B12 normal -Continue to monitor for signs of withdrawal -Alcohol on admission <3 -counseled on cessation (6) Hyperbilirubinemia: Tbili 1.5 on admission and then up to 2.8 but clinically improved--> TBili now down to 1.[address] x 2 LFTs otherwise normal likely Gilbert's vs fatty liver seen on CT -follow LFTs (7) Leukocytosis: improved but then stable today at 15k likely from atelectasis, inflammation likely secondary to acute pancreatitis no other infection suspected follow CBC BCxs NGTD UA neg (8) Fever: on evening of 08/02 and 08/03 likely from atelectasis as has not been moving OOB at all -encouraged IS, OOB and ambulate halls UA neg BCxs pending-NGTD will dc empiric abx (9) Pleural effusion: associated with pancreatitis, volume overload as above diurese again with IV lasix (10) Hypokalemia: likely secondary to IV lasix replace with KCl 40meq po x 1 now and another 20 this evening follow BMP, mag in AM (11) DVT prophylaxis: Lovenox SQ Dispo-continued stay but possibly dc to home tomorrow if fevers resolve, leukocytosis improved, volume overload improved Admission and Anticipated Discharge Date Admission Date: August 01, 2020 Subjective Still having about 2-3/10 in severity left upper abd pain. Has some SOB if he lies flat. He urinated quite a bit last night after the lasix. Is moving his bowels several times today, small amounts. He had another fever last night. No nausea, is eating well-ate too much today and felt too full. He was ambulating more today in the halls. Review of Systems Review of Systems: All systems reviewed & are unremarkable except as noted in HPI & below Physical Exam Constitutional: WD/WN, vitals as above Eyes: + anicteric sclerae Neck: trachea midline, no thyromegaly Respiratory: normal respiratory effort Auscultation: lungs clear to auscultation bilaterally and + diminished lung sounds (at bases bilat) Cardiovascular: RRR, no murmur, no edema Extremities: no calf tenderness Chest (Breasts): Chest: normal inspection of chest Gastrointestinal (Abdomen): Inspection/Auscultation: normal bowel sounds; abdomen not distended Percussion/Palpation: + abdomen tender (epigastric and LUQ w/o guarding) and abdomen soft; abdomen not rigid Musculoskeletal: Extremities: extremities normal to inspection; no cyanosis and no clubbing Skin: no rashes, warm and dry Neurologic: moves all extremities and awake; no focal motor deficits Psychiatric: A+Ox3, euthymic affect Lymphatic: no lymphedema Results & Data Results & Data ([facility]) Vital Signs (Past 12 Hours) Vital Signs Temp Pulse Resp BP Pulse Ox 08/04/20 15:14 37.6 C H 08/04/20 14:51 37.4 C 80 18 107/68 96 08/04/20 08:02 37.1 C 79 18 110/68 94 Laboratory Results 08/04/20 08/04/20 08/03/20 Range/Units 05:35 05:35 05:22 WBC 15.70 H (4.8-10.8) K/uL RBC 3.99 L (4.7-6.1) M/uL Hgb 13.1 L (14.0-18.0) g/dL Hct 36.9 L (42-52) % MCV 92.5 (80-100) fL MCH 32.8 (25-34) pg MCHC 35.5 (32-36) g/dL RDW Std Deviation 41.2 (36.4-46.3) fL RDW Coeff of Jl 12.1 (11.5-14.5) % Plt Count 173 (130-400) K/uL MPV 10.4 (7.4-10.4) fL Sodium 140 (136-145) mmol/L Potassium 3.3 L (3.5-5.1) mmol/L Chloride 105 (98-107) mmol/L Carbon Dioxide 30 (21-32) mmol/L Anion Gap 5.0 (3-11) BUN 10 (7-18) mg/dl Creatinine 0.81 (0.6-1.4) mg/dl Est Cr Clr Drug Dosing 157.7 ml/min Est GFR ( Amer) 141.2 Est GFR (Non-Af Amer) 121.8 BUN/Creatinine Ratio 12.9 (10-20) Glucose 99 (70-99) mg/dl Calcium 7.9 L (8.5-10.1) mg/dl Total Bilirubin 1.9 H (0.2-1) mg/dl Direct Bilirubin 0.4 H 0.5 H (0-0.2) mg/dl AST 18 (15-37) U/L ALT 26 (12-78) U/L Alkaline Phosphatase 57 (45-117) U/L Total Protein 6.8 (6.4-8.2) gm/dl Albumin 3.1 L (3.4-5.0) gm/dl Triglycerides 98 (0-150) mg/dl Cholesterol 119 (0-200) mg/dl LDL Cholesterol, Calc 62 mg/dl VLDL Cholesterol, Calc 20 mg/dl HDL Cholesterol 37 mg/dl Cholesterol/HDL Ratio 3 Lipase 1741 H (73-393) U/L PG Care Time/CCT Total # of Minutes Spent Total Time Spent with Patient: Total time spent is greater than 50% in coordination of care (as documented) at patient's floor/unit and/or counseling patient: Coding Level of Care Code 69904 Subseq Hosp Care Lvl 3 Diagnoses Acute pancreatitis K85.90 Abdominal pain R10.10 Abdominal location: upper abdomen, unspecified Depression F32.9 Nausea and vomiting R11.2 Vomiting Intractability: non-intractable Vomiting type: unspecified Alcohol abuse F10.10 Hyperbilirubinemia E80.6 Leukocytosis D72.829 Fever R50.9 Pleural effusion J90 Hypokalemia E87.6 DVT prophylaxis Z29.9 (1) Abdominal pain Abdominal location: upper abdomen, unspecified Qualified Code(s): R10.10 - Upper abdominal pain, unspecified (2) Nausea and vomiting Vomiting Intractability: non-intractable Vomiting type: unspecified Qualified Code(s): R11.2 - Nausea with vomiting, unspecified
[2020-08-04] MEDS ORDERED: POTASSIUM CHLORIDE CRTAB 20 MEQ TABCR PO SCH (21:00)
[2020-08-05 06:15] LABS: Hematocrit (blood only) 37.4 % (42-52); Hemoglobin 13.3 g/dL (14.0-18.0); Mean Corpuscular Hemoglobin 32.6 pg (25-34); Mean Corpuscular Hgb Conc 35.6 g/dL (32-36); Mean Corpuscular Volume 91.7 fL (80-100); Mean Platelet Volume 10.4 fL (7.4-10.4); Platelet Count 215 K/uL (130-400); RDW Coefficient of Variation 12.3 % (11.5-14.5); RDW Standard Deviation 41.3 fL (36.4-46.3); Red Blood Count 4.08 M/uL (4.7-6.1); White Blood Count 11.22 K/uL (4.8-10.8)
[2020-08-05 06:48] LABS: Albumin Globulin Ratio 0.9 (0.9-2); Albumin Level 3.4 gm/dl (3.4-5.0); BUN Creatinine Ratio 15.6 (10-20); Calcium 8.6 mg/dl (8.5-10.1); Creatinine Clr Calc Pharmacy 165.9 ml/min; Est GFR (African American) 144.1; Est GFR (Non-African American) 124.4; Magnesium 2.1 mg/dl (1.8-2.4); Potassium 3.9 mmol/L (3.5-5.1); Total Protein 7.4 gm/dl (6.4-8.2)
[2020-08-05] MEDS: DOCUSATE SODIUM 100 MG CAP PO SCH (09:00)
[2020-08-05] MEDS: ESCITALOPRAM OXALATE 10 MG TAB PO SCH (09:01)
[2020-08-05] MEDS: SENNA 8.6 MG TAB PO SCH (09:01)
[2020-08-05] MEDS: ENOXAPARIN INJ 40 MG/0.4 ML SYR SQ SCH (09:02)
--- NOTE | 2020-08-05 13:50 | Discharge Summary ---
Date of Service August 05, 2020 Admission HPI Per Admitting Provider Patient is a 25 year old male with PMHx exercise induced asthma, Depression, and Allergic rhinitis that presents with nausea, vomiting, and abdominal pain since 9AM on day of admission. Patient notes that he has had similar pain in the past a few months ago and was evaluated at [facility] then on day 3 of 5 of his pain at that time. He states that he does have a history of alcohol use, typically 1-2 drinks every other day, however, for the past week has been drinking 4-5 beers/mixed drinks daily due to increased stress of his school work. 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 He notes that his last drink was at midnight of 08/01/20 (~22 hours prior to ED arrival). Currently patient notes that his abdominal pain is a 5/10, improved from 7/10 on arrival, and that his nausea has resolved. He denies any chest pain, chest pressure, SOB, fever, chills, headache, visual changes. Med Hx: Exercise induced Asthma, Depression, Allergic rhinitis Surg Hx: R ankle repair Soc Hx: No tobacco or illicit drug use. Typically has 1-2 drinks every other day, more recently 4-5 drinks daily Principal Diagnosis Acute alcoholic pancreatitis Discharge Exam Constitutional WD/WN, vitals as above Eyes + anicteric sclerae Neck trachea midline, no thyromegaly Respiratory normal respiratory effort, lungs clear to auscultation Cardiovascular RRR, no murmur, no edema Extremities: no calf tenderness Chest (Breasts) Chest: normal inspection of chest Gastrointestinal (Abdomen) normal bowel sounds, soft, nontender, no hepatosplenomegaly Musculoskeletal Extremities: extremities normal to inspection; no cyanosis and no clubbing Skin no rashes, warm and dry Neurologic moves all extremities and awake; no focal motor deficits Psychiatric A+Ox3, euthymic affect Lymphatic no lymphedema Discharge Data Allergies Allergy/AdvReac Type Severity Reaction Status Date / Time No Known Allergies Allergy Unverified 08/01/20 20:09 Consultations 08/01/20 21:24 ED Decision to Admit Stat Ordered Studies 08/01/20 19:46 CT abd pelvis IV con only Urgent 08/03/20 18:23 CT abd pelvis IV con only Urgent Hospital Course (1) Acute pancreatitis: Patient is a 25 year old male with PMHx exercise-induced asthma, Depression, and Allergic rhinitis that presents with nausea, vomiting, and abdominal pain, found to have acute pancreatitis based on imaging and elevated lipase Most likely secondary to Alcohol Abuse GB normal on imaging although TBili mildly elevated. Had one previous episode of pancreatitis as an outpt several months ago. No FH of pancreatitis, no offending medications, no hypercalcemia. TG are normal Had a low grade fever two nights in a row--> repeat CT abd/pel performed which showed pancreatitis (no necrosis or pseudocyst) and bilat pleural effusions with associated compressive atelectasis--> fevers likely from atelectasis and are now resolved Was treated initially with IVFs, IV pain meds, bowel rest. Diet was advanced on day #2 to low fat -Lipase on admission 95083 in addition to elevated bilirubin 1.5 --> now lipase down to 1100 Clinically improving, hunter low fat diet ,pain much improved, moving bowels, fevers resolved He had volume overload and was given IV lasix daily x 2 days which greatly helped dc to home, avoid all EtOH counseled on such f/u with GI as outpt if has recurrence of milder symptoms f/u with PCP (2) Abdominal pain: 2/2 pancreatitis as above (3) Depression: stable continue lexapro (4) Nausea and vomiting: resolved (5) Alcohol abuse: drinking 4 drinks daily recently -Last drink midnight of 08/01/20 -AWSS protocol with ativan pushes PRN-none needed -Folate and B12 normal -Alcohol on admission <3 -counseled on cessation (6) Hyperbilirubinemia: Tbili 1.5 on admission and then up to 2.8 but clinically improved--> TBili now down to 1.[address] x 2 LFTs otherwise normal likely Gilbert's , no teatment needed (7) Leukocytosis: improved finally down to 11k; likely from atelectasis, inflammation/acute pancreatitis no other infection suspected follow CBC BCxs remain NGTD UA neg (8) Fever: on evening of 08/02 and 4/5 likely from atelectasis as has not been moving OOB at all -encouraged IS, OOB and ambulate halls UA neg BCxs pending-NGTD received empiric abx x 2 days and then stopped Doing well (9) Pleural effusion: associated with pancreatitis, volume overload as above diurese again with IV lasix x 2 days, now improved ambulating, POx normal (10) Hypokalemia: likely secondary to IV lasix replaced and resolved (11) DVT prophylaxis: Lovenox SQ Dispo-dc to home Total Time Total Time Spent Total Time Spent (In Minutes): 35 min Total Time Includes: Examination of the Patient, Discharge Planning and Medication Reconciliation Discharge Plan Discharge Items Patient Disposition: Home - Self-Care Reason For Visit: ACUTE PANCREATITIS Discharge Diagnosis: Acute pancreatitis Condition on Discharge: Good Activity: Resume your previous activity Non-emergency contact: Primary Care Provider Call non-emergency contact if: you have any medication questions, your symptoms worsen, your pain is not controlled, your pain is worsening, your pain is unusual for you and your pain is concerning for you Follow-up/Referrals: [facility] [Primary Care Provider] - (Please follow up within 1-2 weeks.) Diet: Low Fat Addtl Attending Provider Instructions: Please avoid all alcohol use moving forward to prevent recurrence of pancreatitis. Follow up with your PCP within 1-2 weeks at [facility]. If you have worsening abdominal pain, spike a fever > 101 F, or have return of nausea/vomiting, please return to the hospital. Pending Studies at Discharge: Yes Stand-Alone Forms: My [facility] Medications and DC Order Prescriptions: New acetaminophen 325 mg Tablet 650 mg PO Q4H PRN (Reason: pain) Qty: 20 RF: 0 Continued pseudoephedrine HCl [Sudafed] 60 mg Tablet 60 mg PO Q6H PRN (Reason: Congestion) RF: 0 escitalopram oxalate [Lexapro] 10 mg Tablet 15 mg PO QAM RF: 0 Discharge Orders: Discharge Order (Routine); Ordered 08/05/20 Ordered By: Malika Mcdonald Admission Data Admit Date/Time: 08/01/20 23:07 Attending Provider: Malika Mcdonald Admit Provider: Daniel Yanez Primary Care Provider: [facility] Other Providers: Zak Singh Coding Level of Care Code D/C Day Management >30 mins Diagnoses Acute pancreatitis K85.90 Abdominal pain R10.10 Abdominal location: upper abdomen, unspecified Depression F32.9 Nausea and vomiting R11.2 Vomiting Intractability: non-intractable Vomiting type: unspecified Alcohol abuse F10.10 Hyperbilirubinemia E80.6 Leukocytosis D72.829 Fever R50.9 Pleural effusion J90 Hypokalemia E87.6 DVT prophylaxis Z29.9
== END 2020-08-05 15:25 | disposition home or self-care (01) | DRG 439 ==
LOC: EDUNIT# 18:31 → ED 18:31 → 3N 23:07 → SUATTDRO 23:07 → 3N 08-02 00:20

== ENCOUNTER 2020-11-22 14:07 | Inpatient (IN) ==
[2020-11-22 14:45] LABS: Basophils # (auto) 0.02 K/uL (0-0.2); Basophils % (auto) 0.2 %; Eosinophils # (auto) 0.12 K/uL (0-0.5); Hematocrit (blood only) 47.2 % (42-52); Hemoglobin 16.6 g/dL (14.0-18.0); Immature Granulocytes # (auto) 0.04 K/uL (0.00-0.02); Immature Granulocytes % (auto) 0.3 %; Lymphocytes # (auto) 0.91 K/uL (1.2-3.4); Lymphocytes % (auto) 7.5 %; Mean Corpuscular Hemoglobin 32.4 pg (25-34); Mean Corpuscular Hgb Conc 35.2 g/dL (32-36); Mean Platelet Volume 10.7 fL (7.4-10.4); Monocytes # (auto) 0.46 K/uL (0.11-0.59); Monocytes % (auto) 3.8 %; Neutrophils # (auto) 10.66 K/uL (1.4-6.5); Neutrophils % (auto) 87.2 %; Platelet Count 215 K/uL (130-400); RDW Standard Deviation 41.1 fL (36.4-46.3); Red Blood Count 5.13 M/uL (4.7-6.1); White Blood Count 12.21 K/uL (4.8-10.8)
[2020-11-22] MEDS ORDERED: MoRPHine SULFATE 4 MG/ML 1 ML CARP\\VIAL IV STA ×2 (14:50→15:14)
[2020-11-22] MEDS ORDERED: ONDANSETRON INJ 2 MG/ML 2 ML VIAL IV STA (14:50)
[2020-11-22] MEDS ORDERED: KETOROLAC TROMETHAMINE 15 MG/ML VIAL IV STA (14:50)
[2020-11-22] MEDS ORDERED: SODIUM CHLORIDE 0.9% 1000ML 1,000 ML IV SCH (15:00)
[2020-11-22 15:01] LABS: Albumin Level 4.5 gm/dl (3.4-5.0); BUN Creatinine Ratio 15.8 (10-20); Calcium 9.4 mg/dl (8.5-10.1); Creatinine Clr Calc Pharmacy 131.3 ml/min; Est GFR (African American) 135.2 ml/min; Est GFR (Non-African American) 116.6 ml/min; Potassium 3.7 mmol/L (3.5-5.1)
[2020-11-22 15:04] LABS: Albumin Globulin Ratio 1.3 (0.9-2); Bilirubin,Total 1.2 mg/dl (0.2-1); Globulin 3.6 gm/dl (2.5-4.0); Total Protein 8.1 gm/dl (6.4-8.2)
[2020-11-22 15:04] LABS: Appearance Urine Turbid (Clear); Bacteria Urine Automated Negative (Negative); Bilirubin Urine Negative (Negative); Blood Urine Negative (Negative); Color Urine Dark Yellow; Epithelial Cell Urine Auto 0-5 /lpf (0-5); Glucose Urine UA Negative (Negative); Ketones Urine Negative (Negative); Leukocyte Esterase Urine Negative (Negative); Nitrite Urine Negative (Negative); Protein Urine Trace (Negative); Specific Gravity Urine 1.023 (1.000-1.030); Urobilinogen Urine Negative (Negative); WBC Urine Automated 0 /hpf (0-5)
[2020-11-22] MEDS ORDERED: FAMOTIDINE 20MG IV PUSH 20 MG/5 ML SYR IV STA (15:14)
--- NOTE | 2020-11-22 15:18 | Emergency Department Note ---
History of Present Illness General Chief complaint: Abdominal Pain Stated complaint: ABD PAIN Time Seen by Provider: 11/22/20 14:38 History of Present Illness Maximum Pain Intensity: 6 This is a 25-year-old male that presents to the emergency department via private vehicle accompanied by female with complaints of "abdominal pain". The patient notes a history of pancreatitis and notes that this feels similar but not as severe as his previous episode. Patient does admit to drinking 3 beers yesterday. Current discomfort in the left upper quadrant region is a 6 out of 10. He does note that this began today around 10 AM and then had an episode of emesis around noon time. He notes a history of asthma, right ankle surgery but denies any allergies. Home Medications Medication Instructions Recorded Confirmed Type pseudoephedrine HCl 60 mg tablet 60 mg PO Q6H PRN 08/01/20 11/22/20 History (Sudogest) fluoxetine 10 mg tablet 15 mg PO QAM 11/22/20 11/22/20 History Allergies Allergy/AdvReac Type Severity Reaction Status Date / Time No Known Allergies Allergy Unverified 11/22/20 15:13 Past Med/Surg History Medical History (Updated 11/23/20 @ 00:25 by Layton Armstrong PA-C) Asthma Depression Hx of pancreatitis Surgical History (Updated 11/23/20 @ 00:20 by Layton Armstrong PA-C) History of ankle surgery Social History Smoking Status: Never smoker Second Hand Exposure: No; Hx Alcohol Use: Yes Alcohol type: beer and hard liquor Hx Substance Use: No Preferred Language: Macedonian Communication Ability: Effective Entry Level Project Coordinator Required: No Beliefs That Will Affect Care: None marital status: Single Current Living Situation: Alone current occupational status: student Feels Safe at Home: Yes Assistive Devices: Glasses Review of Systems A total of 10 systems reviewed and were otherwise negative Physical Exam Vital Signs Vital Signs - 24 hr 11/22/20 14:15 11/22/20 16:00 Temperature 36.1 C L Temperature Source Temporal Artery Scan Pulse Rate 65 Pulse Rate [Apical] 55 L Respiratory Rate 19 20 Respiratory Effort / Characteristics Non-Labored Respiratory Depth Normal Blood Pressure 110/66 Blood Pressure [Left Arm] 131/72 Blood Pressure Mean 80 Blood Pressure Mean [Left Arm] 91 Pulse Oximetry 96 97 Oxygen Delivery Method Room Air Room Air Sepsis Recent Fever Within 48 Hours No Sepsis New/Unexplained Change in Mental Status No Sepsis Action Taken by Nursing No Action Required VITAL SIGNS - Vital signs and nursing notes were reviewed. Stable and afebrile. GENERAL -25-year-old male appearing his stated age who is in no acute distress. Communicates well with provider and answers questions appropriately. SKIN - Without rashes. No meningeal or petechial rash. HEAD - NC/AT. EYES - Sclera anicteric. EARS - No deformities of external structures noted on gross examination bilaterally. LUNGS - Chest wall symmetric without accessory muscle use, intercostals retractions, or central cyanosis. Normal vesicular breath sounds CTA B/L. No wheezes, rales, or rhonchi appreciated. CARDIAC - RRR with S1/S2. No murmur, rubs, or gallops appreciated. ABDOMEN - Abdominal contour normal without pulsations or visible masses. BS normoactive all four quadrants. LUQ abd ttp noted. Abdomen is soft. No gu arding or rigidity. No palpable masses, hepatosplenomegaly, or ascites noted. NEUROLOGIC - Cranial nerves II through XII grossly intact. PSYCH - A&O, and cooperates fully with examiner. Pt is very pleasant and interacts well with examiner. Course Administered Medications Enoxaparin Sodium (Enoxaparin Inj 40 Mg/0.4 Ml Syr) 40 mg SQ Q24H [facility] Stop: 12/22/20 20:59 Last Admin: 11/22/20 20:37 Dose: 40 mg Documented by: [id number] Hydromorphone HCl (Hydromorphone Inj 0.5 Mg/0.5 Ml Syr) 0.5 mg IV Q3H PRN PRN Reason: Pain Stop: 12/06/20 17:32 Last Admin: 11/22/20 23:10 Dose: 0.5 mg Documented by: [id number] Admin: 11/22/20 18:53 Dose: 0.5 mg Documented by: [id number] Dextrose/Lactated Ringer's (D5w And Lactated Ringers) 1,000 mls @ 150 mls/hr IV .Q6H40M VIET Stop: 11/23/20 18:39 Last Admin: 11/22/20 23:11 Dose: 150 mls/hr Documented by: [id number] Infusion: 11/22/20 23:11 Dose: 150 mls/hr Documented by: [id number] Admin: 11/22/20 17:40 Dose: 150 mls/hr Documented by: [id number] Discontinued Medications Sodium Chloride (Nss 1000ml) 1,000 mls @ 999 mls/hr IV .Q1H1M VIET Stop: 11/22/20 16:00 Last Infusion: 11/22/20 16:02 Dose: 0 mls/hr Documented by: [id number] Admin: 11/22/20 14:57 Dose: 999 mls/hr Documented by: [id number] Famotidine (Pepcid 20mg Iv Push) 20 mg in 5 mls @ 2.5 mls/min IV NOW STA Stop: 11/22/20 15:15 Last Admin: 11/22/20 15:36 Dose: 2.5 mls/min Documented by: [id number] Ketorolac Tromethamine (Ketorolac Tromethamine 15 Mg/Ml Vial) 15 mg IV NOW STA Stop: 11/22/20 14:51 Last Admin: 11/22/20 14:57 Dose: 15 mg Documented by: [id number] Morphine Sulfate (Morphine Sulfate 4 Mg/Ml 1 Ml Carp\\Vial) 4 mg IV NOW STA Stop: 11/22/20 14:51 Last Admin: 11/22/20 14:57 Dose: 4 mg Documented by: [id number] Morphine Sulfate (Morphine Sulfate 4 Mg/Ml 1 Ml Carp\\Vial) 4 mg IV NOW STA Stop: 11/22/20 15:15 Last Admin: 11/22/20 15:36 Dose: 4 mg Documented by: [id number] Ondansetron HCl (Ondansetron Inj 2 Mg/Ml 2 Ml Vial) 4 mg IV NOW STA Stop: 11/22/20 14:51 Last Admin: 11/22/20 14:57 Dose: 4 mg Documented by: [id number] Medical Decision Making Laboratory Data Result diagrams: 11/22/20 14:40 11/22/20 14:40 Lab Results 11/22/20 11/22/20 11/22/20 Range/Units 14:40 14:40 14:48 WBC 12.21 H (4.8-10.8) K/uL RBC 5.13 (4.7-6.1) M/uL Hgb 16.6 (14.0-18.0) g/dL Hct 47.2 (42-52) % MCV 92.0 (80-100) fL MCH 32.4 (25-34) pg MCHC 35.2 (32-36) g/dL RDW Std Deviation 41.1 (36.4-46.3) fL RDW Coeff of Jl 12.0 (11.5-14.5) % Plt Count 215 (130-400) K/uL MPV 10.7 H (7.4-10.4) fL Immature Gran % (Auto) 0.3 % Neut % (Auto) 87.2 % Lymph % (Auto) 7.5 % Dougherty % (Auto) 3.8 % Eos % (Auto) 1.0 % Baso % (Auto) 0.2 % Neut # (Auto) 10.66 H (1.4-6.5) K/uL Lymph # (Auto) 0.91 L (1.2-3.4) K/uL Dougherty # (Auto) 0.46 (0.11-0.59) K/uL Eos # (Auto) 0.12 (0-0.5) K/uL Baso # (Auto) 0.02 (0-0.2) K/uL Immature Gran # (Auto) 0.04 H (0.00-0.02) K/uL Sodium 141 (136-145) mmol/L Potassium 3.7 (3.5-5.1) mmol/L Chloride 105 (98-107) mmol/L Carbon Dioxide 26 (21-32) mmol/L Anion Gap 10.0 (3-11) BUN 14 (7-18) mg/dl Creatinine 0.90 (0.6-1.4) mg/dl Est Cr Clr Drug Dosing 131.3 ml/min Est GFR ( Amer) 135.2 ml/min Est GFR (Non-Af Amer) 116.6 ml/min BUN/Creatinine Ratio 15.8 (10-20) Glucose 115 H (70-99) mg/dl Calcium 9.4 (8.5-10.1) mg/dl Total Bilirubin 1.2 H (0.2-1) mg/dl AST 33 (15-37) U/L ALT 66 (12-78) U/L Alkaline Phosphatase 75 (45-117) U/L Total Protein 8.1 (6.4-8.2) gm/dl Albumin 4.5 (3.4-5.0) gm/dl Globulin 3.6 (2.5-4.0) gm/dl Albumin/Globulin Ratio 1.3 (0.9-2) Amylase 546 H (25-115) U/L Lipase 5795 H (73-393) U/L Urine Color Dark Yellow Urine Appearance Turbid A (Clear) Urine pH 8.0 H (4.5-7.5) Ur Specific Cary 1.023 (1.000-1.030) Urine Protein Trace H (Negative) Urine Glucose (UA) Negative (Negative) Urine Ketones Negative (Negative) Urine Blood Negative (Negative) Urine Nitrite Negative (Negative) Urine Bilirubin Negative (Negative) Urine Urobilinogen Negative (Negative) Ur Leukocyte Esterase Negative (Negative) Urine WBC (Auto) 0 (0-5) /hpf Urine RBC (Auto) 5-10 H (0-4) /hpf U Hyaline Cast (Auto) 1-5 (0-5) /lpf U Epithel Cells (Auto) 0-5 (0-5) /lpf Urine Bacteria (Auto) Negative (Negative) COVID-19 Eval Order SARS-CoV-2 (PCR) (Negative) 11/22/20 11/22/20 Range/Units 15:42 15:42 WBC (4.8-10.8) K/uL RBC (4.7-6.1) M/uL Hgb (14.0-18.0) g/dL Hct (42-52) % MCV (80-100) fL MCH (25-34) pg MCHC (32-36) g/dL RDW Std Deviation (36.4-46.3) fL RDW Coeff of Jl (11.5-14.5) % Plt Count (130-400) K/uL MPV (7.4-10.4) fL Immature Gran % (Auto) % Neut % (Auto) % Lymph % (Auto) % Dougherty % (Auto) % Eos % (Auto) % Baso % (Auto) % Neut # (Auto) (1.4-6.5) K/uL Lymph # (Auto) (1.2-3.4) K/uL Dougherty # (Auto) (0.11-0.59) K/uL Eos # (Auto) (0-0.5) K/uL Baso # (Auto) (0-0.2) K/uL Immature Gran # (Auto) (0.00-0.02) K/uL Sodium (136-145) mmol/L Potassium (3.5-5.1) mmol/L Chloride (98-107) mmol/L Carbon Dioxide (21-32) mmol/L Anion Gap (3-11) BUN (7-18) mg/dl Creatinine (0.6-1.4) mg/dl Est Cr Clr Drug Dosing ml/min Est GFR ( Amer) ml/min Est GFR (Non-Af Amer) ml/min BUN/Creatinine Ratio (10-20) Glucose (70-99) mg/dl Calcium (8.5-10.1) mg/dl Total Bilirubin (0.2-1) mg/dl AST (15-37) U/L ALT (12-78) U/L Alkaline Phosphatase (45-117) U/L Total Protein (6.4-8.2) gm/dl Albumin (3.4-5.0) gm/dl Globulin (2.5-4.0) gm/dl Albumin/Globulin Ratio (0.9-2) Amylase (25-115) U/L Lipase (73-393) U/L Urine Color Urine Appearance (Clear) Urine pH (4.5-7.5) Ur Specific Cary (1.000-1.030) Urine Protein (Negative) Urine Glucose (UA) (Negative) Urine Ketones (Negative) Urine Blood (Negative) Urine Nitrite (Negative) Urine Bilirubin (Negative) Urine Urobilinogen (Negative) Ur Leukocyte Esterase (Negative) Urine WBC (Auto) (0-5) /hpf Urine RBC (Auto) (0-4) /hpf U Hyaline Cast (Auto) (0-5) /lpf U Epithel Cells (Auto) (0-5) /lpf Urine Bacteria (Auto) (Negative) COVID-19 Eval Order Covid19 at [facility] SARS-CoV-2 (PCR) NEGATIVE (Negative) Imaging Data Radiologist's Impression: Pancreas Ultrasound 11/22/20 14:50 US pancreas CLINICAL HISTORY: 25 years-old Male presenting with LUQ pain, hx pancreatitis. TECHNIQUE: Real-time grayscale ultrasound imaging of the upper abdomen was performed for a focused evaluation at the site of clinical concern. COMPARISON: August 13, 2020 FINDINGS: Liver is normal in size with minimal increase in echogenicity and coarsening of echotexture of its parenchyma, without evidence of focal lesions or intrahepatic biliary dilatation. Redemonstration of focal area of slightly decreased in echogenicity adjacent to the portal vein representing area of fat sparing. Gallbladder is fluid-filled without evidence of intraluminal calculi. No evidence of gallbladder wall thickening or pericholecystic edema is seen. Sonographic Trujillo's sign is negative. Common bile duct is nondilated measuring 0.4 cm in diameter. Visualized portion of pancreas is heterogeneous and show no evidence of focal lesions. Previously seen pancreatic enlargement is no longer visualized. Above- mentioned findings likely representing sequela from prior pancreatitis. Right kidney is measuring 11.2 cm in length and shows no evidence of hydronephrosis. IMPRESSION: 1. Hepatic steatosis. 2. Normal sonographic appearance of the gallbladder. 3. Sequela from prior pancreatitis, interval improvement since prior. 4. The rest of findings as above. ACT 112: Negative or not required by law. Electronically signed by: Ariana Heath DO 11/22/2020 4:08 PM MDM Narrative Patient was seen and evaluated as above in room C07. Review was performed of nursing notes and vital signs. I did review pertinent previous visits and patient history. After obtaining a thorough history and physical examination the above work up was performed. Patient presents to us today with left upper quadrant abdominal pain. He drank 3 beers yesterday. He notes that around 10 AM today he began with the discomfort and then had an episode of emesis around noon time. He notes this feels similar to previous episode of pancreatitis but not quite as severe. Options of care were discussed with the patient. IV access was established. Labs were drawn. Patient was given IV analgesics and antiemetics. He was hydrated with normal saline. Patient did require additional doses of antiemetics while here in the emergency department. There is mild leukocytosis 12.21 without significant anemia. No emergent metabolic disturbance but I will note there is elevation of the patient's amylase and lipase. Lipase 5795. This is lower than his previous lipase just a few months ago. Urinalysis does not she has infection. Covid testing negative. Ultrasound was obtained of the pancreas and there is hepatic steatosis noted. Normal sonographic appearance of the gallbladder. Sequelae from prior pancreatitis, or interval improvement sin ce prior. At this time with the patient's history and lipase elevation at this time I suspect this is an acute pancreatitis episode. At this time I do believe that further evaluation the management in the inpatient setting is warranted. Case discussed with the hospitalist. Please refer to further documentation regarding his stay. Patient amenable to plan of care. GCS: 15 In the evaluation and treatment of this patient the following differential diagnoses were entertained: Gastritis, pancreatitis, ACS, NM, PE, pneumonia, mediastinitis, dissection, among others. Impression & Plan Acute pancreatitis, Acute LUQ pain Discharge Plan Visit Data Chief Complaint: Abdominal Pain Stated Complaint: ABD PAIN ED Provider: Jama Marie ED Midlevel Provider: Layton Armstrong Discharge Problem: Acute pancreatitis, Acute LUQ pain Patient Disposition: Admitted As Inpatient Condition: Good Discharge Instructions Interventions: ED Discharge Assessment Last Done: 11/22/20 17:14
[2020-11-22] MEDS ORDERED: ONDANSETRON INJ 2 MG/ML 2 ML VIAL IV PRN (16:06)
--- NOTE | 2020-11-22 16:09 | Ultrasound Report ---
US pancreas CLINICAL HISTORY: 25 years-old Male presenting with LUQ pain, hx pancreatitis. TECHNIQUE: Real-time grayscale ultrasound imaging of the upper abdomen was performed for a focused ev aluation at the site of clinical concern. COMPARISON: August 13, 2020 FINDINGS: Liver is normal in size with minimal increase in echogenicity and coarsening of echotexture of its pa renchyma, without evidence of focal lesions or intrahepatic biliary dilatation. Redemonstration of focal area of slightly decreased in echogenicity adjacent to the portal vein repre senting area of fat sparing. Gallbladder is fluid-filled without evidence of intraluminal calculi. No evidence of gallbladder wall thickening or pericholecystic edema is seen. Sonographic Trujillo's sign is negative. Common bile duct is nondilated measuring 0.4 cm in diameter. Visualized portion of pancreas is heterogeneous and show no evidence of focal lesions. Previously see n pancreatic enlargement is no longer visualized. Above-mentioned findings likely representing sequel a from prior pancreatitis. Right kidney is measuring 11.2 cm in length and shows no evidence of hydronephrosis. IMPRESSION: 1. Hepatic steatosis. 2. Normal sonographic appearance of the gallbladder. 3. Sequela from prior pancreatitis, interval improvement since prior. 4. The rest of findings as above. ACT 112: Negative or not required by law. Electronically signed by: Ariana Heath DO 11/22/2020 4:08 PM
--- NOTE | 2020-11-22 16:10 | History & Physical Report ---
Date of Service November 22, 2020 Assessment & Plan (1) Acute alcoholic pancreatitis: Plan: 25 y/o M Hx mild asthma, depression, pancreatitis. Presents with upper quadrant abdominal pain, nausea and vomiting x 1 day. The pt was previously admitted with pancreatitis due to increased alcohol intake 07/2020. He admits to regular moderate ETOH and states he had 3 beers the prior day preceding his symptoms. Labs are consistent with acute pancreatitis. An US did not however show acute inflammation. 1) Pancreatitis - IVF, clears, antiemetics, narcotics as needed. Advised to DC ETOH. 2) Depression - cont Fluoxetine 3) Asthma - no eidence of exacerbation Full code - Lovenox prophylaxis Total time for this admit including review of lab, meds, imaging, records - discussion with pt and ER attending - 36 min (2) Depression: (3) Asthma: History of Present Illness Chief Complaint: Abdominal pain, nausea, vomiting Primary Care Provider: [facility] 25 y/o M Hx mild asthma, depression, pancreatitis. Presents with upper quadrant abdominal pain, nausea and vomiting x 1 day. The pt was previously admitted with pancreatitis due to increased alcohol intake 07/2020. He admits to regular moderate ETOH and states he had 3 beers the prior day preceding his symptoms. Labs are consistent with acute pancreatitis. An US did not however show acute inflammation. PMH: 1) Pancreatitis - 07/2020, 10/2020 - preceded by increased alcohol intake 2) Depression 3) Exercise-induced asthma Surgical: Limited to R ankle surgery Social: does not smoke. Drinks alcohol. 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 Family: Parents are alive and well Allergies Allergy/AdvReac Type Severity Reaction Status Date / Time No Known Allergies Allergy Unverified 11/22/20 15:13 Home Medications Medication Instructions Recorded Confirmed Type pseudoephedrine HCl 60 mg tablet 60 mg PO Q6H PRN 08/01/20 11/22/20 History (Sudogest) fluoxetine 10 mg tablet 15 mg PO QAM 11/22/20 11/22/20 History Past Med/Surg History Medical History Depression Surgical History No significant past surgical history Social History Smoking Status: Never smoker Second Hand Exposure: No; Hx Alcohol Use: Yes Alcohol type: beer and hard liquor Hx Substance Use: No Preferred Language: Japanese Communication Ability: Effective 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 Required: No Beliefs That Will Affect Care: None marital status: Single Current Living Situation: Alone current occupational status: student Feels Safe at Home: Yes Assistive Devices: Glasses Review of Systems Review of Systems: Gen: Denies fevers, night sweats, rigors, fatigue, malaise, weight loss/gain ENT: Denies congestion, throat pain, hearing loss Eyes: Denies acute visual changes CV: Denies CP, palpitations Pulmonary: Denies SOB, cough, wheezing GI: Abdominal pain, N/V as per HPI Neuro: Denies acute or unilateral weakness, acute gait impairment, headache or acute visual changes Musculoskeletal: Denies joint pain, inflammation Endocrine: Denies polydipsia, polyuria Skin: Denies acute rashes or ulcers Physical Exam Physical Exam: General: AAO x 3, no distress ENT: No erythema or exudates, no thrush Eyes: MILLER, EOMI Head and neck: Normocephalic, atraumatic, No JVD, neck is supple. Chest/heart: Nontender, S1,2, RRR, no murmurs, no gallops Lungs: CTAB, no wheezing or crackles Abdomen: Very tender LUQ without guarding Neuro: AAO x 3, speech is clear, no unilateral weakness or loss of sensation, coordination intact Musculoskeletal: No joint inflammation, muscle tenderness, FROM Skin: No acute rashes or ulcers Extremities: No clubbing, cyanosis, edema Results & Data Results & Data ([facility]) Vital Signs (Past 12 Hours) Vital Signs Temp Pulse Resp BP Pulse Ox 11/22/20 14:15 97.0 F L 65 19 110/66 96 Diagnostic Findings US abdomen: 1. Hepatic steatosis. 2. Normal sonographic appearance of the gallbladder. 3. Sequela from prior pancreatitis, interval improvement since prior. Code Status & VTE Plan VTE Prophylaxis Plan VTE Prophylaxis will be ordered: Yes PG Care Time/CCT Total # of Minutes Spent Total Time Spent with Patient: Total time spent is greater than 50% in coordination of care (as documented) at patient's floor/unit and/or counseling patient: Coding Level of Care Code 08629 Initial In Care Lvl 3 Diagnoses Acute alcoholic pancreatitis K85.20 Acute pancreatitis complication: no infection or necrosis Depression F32.9 Asthma J45.909 (1) Acute alcoholic pancreatitis Acute pancreatitis complication: no infection or necrosis Qualified Code(s): K85.20 - Alcohol induced acute pancreatitis without necrosis or infection
[2020-11-22] MEDS: D5W AND LACTATED RINGERS 1,000 ML IV SCH ×2 (17:40→23:11)
[2020-11-22] MEDS: HYDROmorphone INJ 0.5 MG/0.5 ML SYR IV PRN ×2 (18:53→23:10)
[2020-11-22] MEDS: ENOXAPARIN INJ 40 MG/0.4 ML SYR SQ SCH (20:37)
[2020-11-23] MEDS: D5W AND LACTATED RINGERS 1,000 ML IV SCH ×2 (05:32→12:16)
[2020-11-23 07:42] LABS: Basophils # (auto) 0.02 K/uL (0-0.2); Basophils % (auto) 0.2 %; Eosinophils # (auto) 0.26 K/uL (0-0.5); Eosinophils % (auto) 2.5 %; Hematocrit (blood only) 43.9 % (42-52); Hemoglobin 14.7 g/dL (14.0-18.0); Immature Granulocytes # (auto) 0.02 K/uL (0.00-0.02); Immature Granulocytes % (auto) 0.2 %; Lymphocytes # (auto) 1.16 K/uL (1.2-3.4); Lymphocytes % (auto) 11.3 %; Mean Corpuscular Hemoglobin 31.7 pg (25-34); Mean Corpuscular Hgb Conc 33.5 g/dL (32-36); Mean Corpuscular Volume 94.6 fL (80-100); Mean Platelet Volume 10.9 fL (7.4-10.4); Monocytes # (auto) 1.22 K/uL (0.11-0.59); Monocytes % (auto) 11.8 %; Neutrophils # (auto) 7.63 K/uL (1.4-6.5); Platelet Count 196 K/uL (130-400); RDW Coefficient of Variation 12.3 % (11.5-14.5); RDW Standard Deviation 42.3 fL (36.4-46.3); Red Blood Count 4.64 M/uL (4.7-6.1); White Blood Count 10.31 K/uL (4.8-10.8)
[2020-11-23 08:20] LABS: Albumin Level 3.5 gm/dl (3.4-5.0); BUN Creatinine Ratio 15.7 (10-20); Bilirubin Direct 0.2 mg/dl (0-0.2); Creatinine Clr Calc Pharmacy 153.5 ml/min; Est GFR (African American) 144.1 ml/min; Est GFR (Non-African American) 124.4 ml/min; Magnesium 1.9 mg/dl (1.8-2.4); Potassium 3.6 mmol/L (3.5-5.1)
[2020-11-23 08:25] LABS: Total Protein 6.7 gm/dl (6.4-8.2)
[2020-11-23] MEDS: FLUoxetine HCL 20 MG/5 ML 120ML BTL PO SCH (09:47)
[2020-11-23] MEDS: HYDROmorphone INJ 0.5 MG/0.5 ML SYR IV PRN (11:53)
[2020-11-23] MEDS ORDERED: oxyCODONE HCL IR 5 MG TAB (IMMEDIATE RELEASE) PO PRN (12:45)
--- NOTE | 2020-11-23 19:22 | Hospitalist Progress Note ---
Date of Service November 23, 2020 Assessment & Plan (1) Acute alcoholic pancreatitis: Plan: 25 y/o M Hx mild asthma, depression, pancreatitis. Presents with upper quadrant abdominal pain, nausea and vomiting x 1 day. The pt was previously admitted with pancreatitis due to increased alcohol intake 07/2020. He admits to regular moderate ETOH and states he had 3 beers the prior day preceding his symptoms. Labs are consistent with acute pancreatitis. An US did not however show acute inflammation of the pancreas. Total bilirubin only mildly elevated 1.2 and now normal Lipase 5000 on admission 1) Pancreatitis -recurrent, secondary to repeat alcohol use. Encouraged cessation of alcohol use. DC IV fluids as he is starting to feel like he cannot take a deep breath and previous admission required IV Lasix for pleural effusions. Advance diet to low-fat. Encourage use of p.o. oxycodone as needed for pain. Stay overnight Follow CMP, lipase in the morning 2) Depression -no acute issues cont Fluoxetine 3) Asthma - no evidence of exacerbation Full code - Lovenox prophylaxis Disposition-continued stay but likely discharged home tomorrow (2) Depression: (3) Asthma: Admission and Anticipated Discharge Date Admission Date: November 22, 2020 Subjective Patient feels his pain is improved but he still did take IV Dilaudid today. His diet was advanced to low-fat and he is tolerating it so far without increased pain. Last bowel movement was yesterday. He is making urine. He denies shortness of breath but states it does feel little bit tight in his upper abdomen when he takes a deep breath. He does not quite feel ready to go home yet. Review of Systems Review of Systems: All systems reviewed & are unremarkable except as noted in HPI & below Physical Exam Constitutional: WD/WN, vitals as above Eyes: + anicteric sclerae ENMT: external ear and nose normal, oropharynx normal Neck: trachea midline, no thyromegaly Respiratory: normal respiratory effort, lungs clear to auscultation Cardiovascular: RRR, no murmur, no edema Chest (Breasts): Chest: normal inspection of chest Gastrointestinal (Abdomen): Inspection/Auscultation: abdomen normal to inspection Percussion/Palpation: + abdomen tender (Mild in epigastric region without guarding or rebound) and abdomen soft; no hepatosplenomegaly Musculoskeletal: Extremities: extremities normal to inspection; no cyanosis and no clubbing Skin: no rashes, warm and dry Neurologic: moves all extremities and awake; no focal motor deficits Psychiatric: A+Ox3, euthymic affect Lymphatic: no lymphedema Results & Data Results & Data ([facility]) Vital Signs (Past 12 Hours) Vital Signs Temp Pulse Resp BP Pulse Ox 11/23/20 15:46 36.5 C 63 20 108/78 96 11/23/20 07:59 36.3 C L 51 L 22 109/71 97 Laboratory Results 11/23/20 11/23/20 11/23/20 Range/Units 07:01 07:01 07:01 WBC 10.31 (4.8-10.8) K/uL RBC 4.64 L (4.7-6.1) M/uL Hgb 14.7 (14.0-18.0) g/dL Hct 43.9 (42-52) % MCV 94.6 (80-100) fL MCH 31.7 (25-34) pg MCHC 33.5 (32-36) g/dL RDW Std Deviation 42.3 (36.4-46.3) fL RDW Coeff of Jl 12.3 (11.5-14.5) % Plt Count 196 (130-400) K/uL MPV 10.9 H (7.4-10.4) fL Immature Gran % (Auto) 0.2 % Neut % (Auto) 74.0 % Lymph % (Auto) 11.3 % Cataño % (Auto) 11.8 % Eos % (Auto) 2.5 % Baso % (Auto) 0.2 % Neut # (Auto) 7.63 H (1.4-6.5) K/uL Lymph # (Auto) 1.16 L (1.2-3.4) K/uL Cataño # (Auto) 1.22 H (0.11-0.59) K/uL Eos # (Auto) 0.26 (0-0.5) K/uL Baso # (Auto) 0.02 (0-0.2) K/uL Immature Gran # (Auto) 0.02 (0.00-0.02) K/uL Sodium 141 (136-145) mmol/L Potassium 3.6 (3.5-5.1) mmol/L Chloride 108 H (98-107) mmol/L Carbon Dioxide 28 (21-32) mmol/L Anion Gap 5.0 (3-11) BUN 12 (7-18) mg/dl Creatinine 0.77 (0.6-1.4) mg/dl Est Cr Clr Drug Dosing 153.5 ml/min Est GFR ( Amer) 144.1 ml/min Est GFR (Non-Af Amer) 124.4 ml/min BUN/Creatinine Ratio 15.7 (10-20) Glucose 97 (70-99) mg/dl Calcium 8.0 L (8.5-10.1) mg/dl Magnesium 1.9 (1.8-2.4) mg/dl Total Bilirubin 1.0 (0.2-1) mg/dl Direct Bilirubin 0.2 (0-0.2) mg/dl AST 19 (15-37) U/L ALT 44 (12-78) U/L Alkaline Phosphatase 58 (45-117) U/L Total Protein 6.7 (6.4-8.2) gm/dl Albumin 3.5 (3.4-5.0) gm/dl Lipase 9135 H (73-393) U/L PG Care Time/CCT Total # of Minutes Spent Total Time Spent with Patient: Total time spent is greater than 50% in coordination of care (as documented) at patient's floor/unit and/or counseling patient: Coding Level of Care Code 31339 Subseq Hosp Care Lvl 2 Diagnoses Acute alcoholic pancreatitis K85.20 Acute pancreatitis complication: no infection or necrosis Depression F32.9 Asthma J45.909 (1) Acute alcoholic pancreatitis Acute pancreatitis complication: no infection or necrosis Qualified Code(s): K85.20 - Alcohol induced acute pancreatitis without necrosis or infection
[2020-11-23] MEDS: ENOXAPARIN INJ 40 MG/0.4 ML SYR SQ SCH (20:16)
[2020-11-24 07:20] LABS: Basophils # (auto) 0.03 K/uL (0-0.2); Basophils % (auto) 0.4 %; Eosinophils # (auto) 0.55 K/uL (0-0.5); Eosinophils % (auto) 6.6 %; Hematocrit (blood only) 43.3 % (42-52); Hemoglobin 14.8 g/dL (14.0-18.0); Immature Granulocytes # (auto) 0.02 K/uL (0.00-0.02); Immature Granulocytes % (auto) 0.2 %; Lymphocytes # (auto) 1.61 K/uL (1.2-3.4); Lymphocytes % (auto) 19.3 %; Mean Corpuscular Hemoglobin 31.9 pg (25-34); Mean Corpuscular Hgb Conc 34.2 g/dL (32-36); Mean Corpuscular Volume 93.3 fL (80-100); Mean Platelet Volume 10.6 fL (7.4-10.4); Monocytes # (auto) 1.04 K/uL (0.11-0.59); Monocytes % (auto) 12.4 %; Neutrophils # (auto) 5.11 K/uL (1.4-6.5); Neutrophils % (auto) 61.1 %; Platelet Count 185 K/uL (130-400); RDW Coefficient of Variation 12.2 % (11.5-14.5); RDW Standard Deviation 41.3 fL (36.4-46.3); Red Blood Count 4.64 M/uL (4.7-6.1); White Blood Count 8.36 K/uL (4.8-10.8)
[2020-11-24 07:53] LABS: Albumin Level 3.8 gm/dl (3.4-5.0); BUN Creatinine Ratio 13.5 (10-20); Calcium 8.6 mg/dl (8.5-10.1); Creatinine Clr Calc Pharmacy 149.6 ml/min; Est GFR (African American) 142.6 ml/min; Est GFR (Non-African American) 123.1 ml/min; Magnesium 2.1 mg/dl (1.8-2.4); Potassium 3.7 mmol/L (3.5-5.1)
[2020-11-24 07:59] LABS: Albumin Globulin Ratio 1.1 (0.9-2); Bilirubin,Total 1.6 mg/dl (0.2-1); Globulin 3.5 gm/dl (2.5-4.0); Phosphorus 3.6 mg/dl (2.5-4.9); Total Protein 7.3 gm/dl (6.4-8.2)
[2020-11-24 08:02] VITALS: BP 113/73; PULSE 69; TEMP 97.7; O2SAT 97
[2020-11-24] MEDS: FLUoxetine HCL 20 MG/5 ML 120ML BTL PO SCH (08:31)
--- NOTE | 2020-11-24 13:36 | Discharge Summary ---
Date of Service November 24, 2020 Admission HPI Per Admitting Provider 25 y/o M Hx mild asthma, depression, pancreatitis. Presents with upper quadrant abdominal pain, nausea and vomiting x 1 day. The pt was previously admitted with pancreatitis due to increased alcohol intake 07/2020. He admits to regular moderate ETOH and states he had 3 beers the prior day preceding his symptoms. Labs are consistent with acute pancreatitis. An US did not however show acute inflammation. PMH: 1) Pancreatitis - 07/2020, 10/2020 - preceded by increased alcohol intake 2) Depression 3) Exercise-induced asthma Surgical: Limited to R ankle surgery Social: does not smoke. Drinks alcohol. 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 Family: Parents are alive and well Principal Diagnosis Acute recurrent pancreatitis, alcohol induced Discharge Exam Constitutional WD/WN, vitals as above Eyes + anicteric sclerae ENMT external ear and nose normal, oropharynx normal Neck trachea midline, no thyromegaly Respiratory normal respiratory effort, lungs clear to auscultation Cardiovascular RRR, no murmur, no edema Chest (Breasts) Chest: normal inspection of chest Gastrointestinal (Abdomen) Inspection/Auscultation: abdomen normal to inspection Percussion/Palpation: abdomen soft; abdomen nontender and no hepatosplenomegaly Musculoskeletal Extremities: extremities normal to inspection; no cyanosis and no clubbing Skin no rashes, warm and dry Neurologic moves all extremities and awake; no focal motor deficits Psychiatric A+Ox3, euthymic affect Lymphatic no lymphedema Discharge Data Allergies Allergy/AdvReac Type Severity Reaction Status Date / Time No Known Allergies Allergy Unverified 11/22/20 15:13 Consultations 11/22/20 15:56 ED Decision to Admit Stat Ordered Studies 11/22/20 14:50 US pancreas Stat Pancreas Ultrasound 11/22/20 14:50 US pancreas CLINICAL HISTORY: 25 years-old Male presenting with LUQ pain, hx pancreatitis. TECHNIQUE: Real-time grayscale ultrasound imaging of the upper abdomen was performed for a focused evaluation at the site of clinical concern. COMPARISON: August 13, 2020 FINDINGS: Liver is normal in size with minimal increase in echogenicity and coarsening of echotexture of its parenchyma, without evidence of focal lesions or intrahepatic biliary dilatation. Redemonstration of focal area of slightly decreased in echogenicity adjacent to the portal vein representing area of fat sparing. Gallbladder is fluid-filled without evidence of intraluminal calculi. No evidence of gallbladder wall thickening or pericholecystic edema is seen. Sonographic Trujillo's sign is negative. Common bile duct is nondilated measuring 0.4 cm in diameter. Visualized portion of pancreas is heterogeneous and show no evidence of focal lesions. Previously seen pancreatic enlargement is no longer visualized. Above- mentioned findings likely representing sequela from prior pancreatitis. Right kidney is measuring 11.2 cm in length and shows no evidence of hydronephrosis. IMPRESSION: 1. Hepatic steatosis. 2. Normal sonographic appearance of the gallbladder. 3. Sequela from prior pancreatitis, interval improvement since prior. 4. The rest of findings as above. ACT 112: Negative or not required by law. Electronically signed by: Ariana Heath DO 11/22/2020 4:08 PM Hospital Course (1) Acute alcoholic pancreatitis: 25 y/o M Hx mild asthma, depression, pancreatitis. Presents with upper quadrant abdominal pain, nausea and vomiting x 1 day. The pt was previously admitted with pancreatitis due to increased alcohol intake 07/2020. He admits to regular moderate ETOH and states he had 3 beers the prior day preceding his symptoms. Labs are consistent with acute pancreatitis. An US did not however show acute inflammation of the pancreas. Total bilirubin only mildly elevated 1.2 And has had this in the past, other LFTs are normal Lipase 5000 on admission and now improved to 4000, he has no further abdominal pain and is tolerating a low-fat diet He was treated with IV fluids, pain medicine, and bowel rest for the first 24 h ours. Much improved and can be discharged to home Encourage continued alcohol cessation-he was attempting to drink alcohol in moderation and now knows that he cannot do this in the future. 2) Depression -no acute issues cont Fluoxetine 3) Asthma - no evidence of exacerbation Full code - Lovenox prophylaxis Disposition-discharge to home (2) Depression: (3) Asthma: Total Time Total Time Spent Total Time Spent (In Minutes): 35 min Discharge Plan Discharge Items Patient Disposition: Home - Self-Care Reason For Visit: PANCREATITIS Discharge Diagnosis: Acute pancreatitis Condition on Discharge: Good Activity: Resume your previous activity Non-emergency contact: Primary Care Provider and Developmental Education Instructor Call non-emergency contact if: you have any medication questions, your symptoms worsen and your pain is not controlled Follow-up/Referrals: [facility] [Primary [facility] Provider] - (Follow-up within 1 to 2 weeks.) Diet: Low Fat Addtl Attending Provider Instructions: It is important that you abstain from drinking all alcohol as this will cause recurrent pancreatitis. Please continue to follow a low-fat diet for the next few weeks until your pain is completely resolved. You can take Tylenol as needed for abdominal pain. Pending Studies at Discharge: No Stand-Alone Forms: My [facility] Medications and DC Order Prescriptions: New acetaminophen 325 mg tablet 650 mg PO Q4H PRN (Reason: fever or pain) Qty: 20 RF: 0 Continued fluoxetine 10 mg Tablet 15 mg PO QAM RF: 0 pseudoephedrine HCl [Sudogest] 60 mg Tablet 60 mg PO Q6H PRN (Reason: Congestion) RF: 0 Discharge Orders: Discharge Order (Routine); Ordered 11/24/20 Ordered By: Malika Mcdonald Admission Data Admit Date/Time: 11/22/20 16:06 Attending Provider: Malika Mcdonald Admit Provider: Joseph Weber Primary Care Provider: [facility] Other Providers: Joseph Weber Coding Level of Care Code D/C DAY MANAGEMENT >30 MINS Diagnoses Acute alcoholic pancreatitis K85.20 Acute pancreatitis complication: no infection or necrosis Depression F32.9 Asthma J45.909
== END 2020-11-24 14:49 | disposition home or self-care (01) | DRG 440 ==
LOC: ED 14:07 → 3N 16:06 → SUATTDRO 16:06 → 3N 17:14

== ENCOUNTER 2022-01-21 14:10 | Observation (INO) ==
[2022-01-21] MEDS ORDERED: SODIUM CHLORIDE 0.9% 500 ML IV STA (14:52)
[2022-01-21] MEDS ORDERED: MoRPHine SULFATE 4 MG/ML 1 ML CARP\\VIAL IV STA (14:52)
[2022-01-21] MEDS ORDERED: ONDANSETRON INJ 2 MG/ML 2 ML VIAL IV STA (14:53)
--- NOTE | 2022-01-21 15:04 | Emergency Department Note ---
Impression & Plan Acute pancreatitis ED Provider Note Provider: Kashmir Stuart MD DATE OF SERVICE: 01/21/2022 CHIEF COMPLAINT: Abdominal pain, nausea HISTORY OF PRESENT ILLNESS: Patient is a 26-year-old gentleman history in the past of depression and pancreatitis presenting here today reporting onset this morning of significant epigastric to upper left abdominal discomfort. Some nausea she was treated with this. Some slight shortness of breath. Denies trauma. Reports this feels similar to prior episodes of pancreatitis. Drink some alcohol over the weekend. Again has had pancreatitis in the past. States he has had some fatty foods. Denies fever or chills. Denies chest pain. Denies lower abdominal pain. Minimal back discomfort. Took ibuprofen earlier but thinks he may have thrown it up. REVIEW OF SYSTEMS: A total of 10 review of systems was obtained and negative except as stated above in the HPI. 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 NECK: Trachea midline. ENT: Mucous membranes pink and moist. LUNGS: Airway patent. No retractions. Breath sounds clear with good air entry bilaterally. HEART: Regular rate and rhythm. No chest wall tenderness BDOMEN: Soft minimal upper abdominal tenderness SKIN: Acyanotic, warm, dry, without rashes EXTREMITIES: Without swelling, tenderness or deformity NEUROLOGICAL: No focal deficits. No aphasia. No facial droop or slurred speech. Ambulatory. EK bpm sinus bradycardia. No PVC or PAC. No acute ST segment elevation with a QTC of 407. CONTINUOUS CARDIAC MONITORING: was ordered and showed a heart rate of 50s bpm in sinus bradycardia PDMP was checked without noted issue. Patient's laboratory studies and imaging reviewed. Differential includes Appendicitis, testicular torsion, infections, diverticulitis, UTI, obstruction, mesenteric ischemia, aortic pathology, inflammatory bowel disease, renal colic, PUD, pancreatitis, biliary pathology, hernia, volvulus, constipation, as well as other pathologies. IMPRESSION/MEDICAL DECISION MAKING: Symptoms seem consistent likely with recurrence of pancreatitis but broad differential was entertained. Not significantly tachycardic or hypoxic and I doubt PE. EKG and troponin sent but it seems atypical for ACS. CT scan the abdomen pelvis to exclude other acute intra-abdominal pathology was sent but seems too high to indicate kidney stone or appendicitis. Blood work was sent including lipase. White blood cell count of 10 with a hemoglobin of 14. No significant electrolyte abnormality or signs of renal dysfunction. COVID-nega tive. Troponin not severely elevated. No bilirubin elevation with mild AST and ALT elevation. Lipase significantly elevated 1141. Consistent with acute pancreatitis. Patient given some additional pain medication. Recommended admission given his acute pancreatitis and discomfort. Patient was in agreement. Hospitalist will be contacted. DIAGNOSIS: Acute pancreatitis DISPOSITION: Hospitalist will evaluate Patient was agreeable with this plan. Past Med/Surg History Medical History (Updated 01/21/22 @ 17:43 by Kashmir Stuart M.D.) Acute alcoholic pancreatitis Asthma Depression Hx of pancreatitis Surgical History (Updated 11/23/20 @ 00:20 by Layton Armstrong PA-C) History of ankle surgery Social History Smoking Status: Never smoker Second Hand Exposure: No; Hx Alcohol Use: Yes Alcohol type: beer and hard liquor Hx Substance Use: No Preferred Language: Ugandan Communication Ability: Effective Electronic Warfare Operator Required: No Beliefs That Will Affect Care: None marital status: Single Current Living Situation: Alone current occupational status: student Feels Safe at Home: Yes Assistive Devices: None Allergies Allergies Allergy/AdvReac Type Severity Reaction Status Date / Time No Known Allergies Allergy Unverified 11/22/20 15:13 Home Meds Home Medications Medication Instructions Recorded Confirmed pseudoephedrine HCl 60 mg tablet 60 mg PO Q6H PRN Congestion 08/01/20 11/22/20 (Sudogest) fluoxetine 10 mg tablet 15 mg PO QAM 11/22/20 11/22/20 Previous Rx's Medication Instructions Recorded acetaminophen 325 mg tablet 650 mg PO Q4H PRN fever or pain 11/24/20 #20 tabs Results & Data (ED) Vital Signs Vital Signs - 24 hr 01/21/22 14:26 01/21/22 15:11 01/21/22 15:11 Temperature 37.1 C Temperature Source Oral Pulse Rate 57 L Pulse Rate [Right Finger] 52 L Pulse Rhythm Regular Pulse Rhythm [Right Finger] Regular Pulse Strength Normal Pulse Strength [Right Finger] Normal Respiratory Rate 22 18 Respiratory Effort / Characteristics Non-Labored Spontaneous Non-Labored Respiratory Depth Normal Normal Respiratory Pattern Regular Regular Blood Pressure 113/70 Blood Pressure [Right Arm] 122/75 Blood Pressure Mean 84 Blood Pressure Mean [Right Arm] 90 Blood Pressure Position Sitting Blood Pressure Position [Right Arm] Lying Pulse Oximetry 98 97 Oxygen Delivery Method Room Air Room Air Room Air Sepsis Recent Fever Within 48 Hours No Sepsis New/Unexplained Change in Mental Status No Sepsis Action Taken by Nursing No Action Required 01/21/22 17:00 01/21/22 19:00 Temperature Temperature Source Pulse Rate Pulse Rate [Right Finger] 54 L 50 L Pulse Rhythm Pulse Rhythm [Right Finger] Regular Regular Pulse Strength Pulse Strength [Right Finger] Normal Respiratory Rate 18 17 Respiratory Effort / Characteristics Non-Labored Respiratory Depth Normal Respiratory Pattern Regular Blood Pressure Blood Pressure [Right Arm] 130/80 137/85 Blood Pressure Mean Blood Pressure Mean [Right Arm] 96 102 Blood Pressure Position Blood Pressure Position [Right Arm] Lying Pulse Oximetry 97 98 Oxygen Delivery Method Room Air Sepsis Recent Fever Within 48 Hours Sepsis New/Unexplained Change in Mental Status Sepsis Action Taken by Nursing Laboratory Data Result diagrams: 01/21/22 15:31 01/21/22 15:31 Lab Results 01/21/22 01/21/22 01/21/22 Range/Units 15:31 15:31 15:31 WBC 10.19 (4.8-10.8) K/ul RBC 4.58 L (4.63-6.08) M/uL Hgb 14.4 (14.0-18.0) g/dl Hct 42.0 (40.1-51.0) % MCV 91.7 (80.0-100.0) fL MCH 31.4 (25.0-34.0) pg MCHC 34.3 (32.0-36.0) g/dL RDW Std Deviation 39.2 (36.4-46.3) fL RDW Coeff of Jl 11.8 (11.5-14.5) % Plt Count 232 (130-400) K/uL MPV 10.4 (9.4-12.4) fL Immature Gran % (Auto) 0.8 % Neut % (Auto) 75.1 % Lymph % (Auto) 13.8 % [place] % (Auto) 5.6 % Eos % (Auto) 3.9 % Baso % (Auto) 0.8 % Neut # (Auto) 7.65 H (1.4-6.5) K/uL Lymph # (Auto) 1.41 (1.2-3.4) K/uL [place] # (Auto) 0.57 (0.24-0.82) K/uL Eos # (Auto) 0.40 (0-0.50) K/uL Baso # (Auto) 0.08 (0-0.2) K/uL Immature Gran # (Auto) 0.08 H (0.00-0.02) K/uL PT 10.6 (9.0-12.0) Seconds INR 1.0 (0.9-1.1) Sodium 137 (136-145) mmol/L Potassium 4.1 (3.5-5.1) mmol/L Chloride 103 (98-107) mmol/L Carbon Dioxide 26 (21-32) mmol/L Anion Gap 8 (3-11) BUN 16 (6-23) mg/dl Creatinine 0.99 (0.6-1.4) mg/dl Est Cr Clr Drug Dosing 131.5 ml/min Est GFR ( Amer) 119.6 ml/min Est GFR (Non-Af Amer) 103.2 ml/min BUN/Creatinine Ratio 16.2 (10-20) Glucose 111 H (70-99(Fasting)) mg/dl Calcium 9.2 (8.5-10.1) mg/dl Total Bilirubin 0.7 (0.2-1.0) mg/dl AST 83 H (13-39) U/L ALT 105 H (7-52) U/L Alkaline Phosphatase 70 (34-104) U/L Troponin I High Sens 3.1 (0-20) pg/ml Total Protein 7.5 (6.0-8.3) gm/dl Albumin 4.7 (3.4-5.0) gm/dl Globulin 2.8 (2.5-4.0) gm/dl Albumin/Globulin Ratio 1.7 (0.9-2) Lipase 1141 H (11-82) U/L SARS-CoV-2, RNA, NAAT (NEGATIVE) 01/21/22 Range/Units 15:37 WBC (4.8-10.8) K/ul RBC (4.63-6.08) M/uL Hgb (14.0-18.0) g/dl Hct (40.1-51.0) % MCV (80.0-100.0) fL MCH (25.0-34.0) pg MCHC (32.0-36.0) g/dL RDW Std Deviation (36.4-46.3) fL RDW Coeff of Jl (11.5-14.5) % Plt Count (130-400) K/uL MPV (9.4-12.4) fL Immature Gran % (Auto) % Neut % (Auto) % Lymph % (Auto) % [place] % (Auto) % Eos % (Auto) % Baso % (Auto) % Neut # (Auto) (1.4-6.5) K/uL Lymph # (Auto) (1.2-3.4) K/uL [place] # (Auto) (0.24-0.82) K/uL Eos # (Auto) (0-0.50) K/uL Baso # (Auto) (0-0.2) K/uL Immature Gran # (Auto) (0.00-0.02) K/uL PT (9.0-12.0) Seconds INR (0.9-1.1) Sodium (136-145) mmol/L Potassium (3.5-5.1) mmol/L Chloride (98-107) mmol/L Carbon Dioxide (21-32) mmol/L Anion Gap (3-11) BUN (6-23) mg/dl Creatinine (0.6-1.4) mg/dl Est Cr Clr Drug Dosing ml/min Est GFR ( Amer) ml/min Est GFR (Non-Af Amer) ml/min BUN/Creatinine Ratio (10-20) Glucose (70-99(Fasting)) mg/dl Calcium (8.5-10.1) mg/dl Total Bilirubin (0.2-1.0) mg/dl AST (13-39) U/L ALT (7-52) U/L Alkaline Phosphatase (34-104) U/L Troponin I High Sens (0-20) pg/ml Total Protein (6.0-8.3) gm/dl Albumin (3.4-5.0) gm/dl Globulin (2.5-4.0) gm/dl Albumin/Globulin Ratio (0.9-2) Lipase (11-82) U/L SARS-CoV-2, RNA, NAAT NEGATIVE (NEGATIVE) Administered Medications Morphine Sulfate (Morphine Sulfate 4 Mg/Ml 1 Ml Carp\Vial) 4 mg IV Q2H PRN PRN Reason: Pain Stop: 02/04/22 17:37 Last Admin: 01/21/22 17:46 Dose: 4 mg Documented By: YARIEL Discontinued Medications Sodium Chloride (Nss) 500 mls @ 999 mls/hr IV .Q31M STA Stop: 01/21/22 15:22 Last Infusion: 01/21/22 16:37 Dose: 0 mls/hr Documented By: Admin: 01/21/22 15:38 Dose: 999 mls/hr Documented By: YASIR Lactated Ringer's (Lr) 1,000 mls @ 999 mls/hr IV .Q1H1M ONE Stop: 01/21/22 18:38 Last Infusion: 01/21/22 18:49 Dose: 0 mls/hr Documented By: Admin: 01/21/22 17:46 Dose: 999 mls/hr Documented By: YARIEL Ioversol (Optiray 350 100ml) 88 ml IV ONCE ONE Stop: 01/21/22 16:54 Last Admin: 01/21/22 16:54 Dose: 88 ml Documented By: MELISSA Morphine Sulfate (Morphine Sulfate 4 Mg/Ml 1 Ml Carp\Vial) 4 mg IV NOW STA Stop: 01/21/22 14:53 Last Admin: 01/21/22 15:38 Dose: 4 mg Documented By: YASIR Ondansetron HCl (Ondansetron Inj 2 Mg/Ml 2 Ml Vial) 4 mg IV NOW STA Stop: 01/21/22 14:54 Last Admin: 01/21/22 15:38 Dose: 4 mg Documented By: YASIR Imaging Data Radiologist's Impression: Abdomen/Pelvis CT 01/21/22 14:52 CT SCAN OF THE ABDOMEN AND PELVIS WITH IV CONTRAST CLINICAL HISTORY: Upper abdominal pain. COMPARISON STUDY: Abdominal CT dated 08/03/2020. TECHNIQUE: Following the IV administration of 88 cc of Optiray 350, CT scan of the abdomen and pelvis is performed from the lung bases to the proximal femora. Images are reviewed in the axial, sagittal, and coronal planes. IV contrast was administered without complication. A dose lowering technique was utilized adhering to the principles of ALARA. CT DOSE: 492.76 mGy.cm FINDINGS: Lung bases: The heart is normal in size and without pericardial effusion. The lung bases are clear. Liver: The contrast-enhanced liver is enlarged, measuring 20.3 cm in length. The liver demonstrates diffusely diminished attenuation indicating hepatic steato sis. Fatty sparing is seen adjacent to the gallbladder fossa. There is no intrahepatic biliary ductal dilatation. The hepatic veins and portal veins are patent. Gallbladder: Unremarkable. Spleen: Normal in size and attenuation. Pancreas: The pancreas is mildly atrophic for age. The gland enhances throughout. There is peripancreatic inflammation and fluid, greatest on the head and body. The appearance is typical for acute pancreatitis. No organized peripancreatic fluid collection is identified. The duct is normal in caliber. The splenic vein is patent. Adrenal glands: Unremarkable. Kidneys: The contrast enhanced kidneys are normal in size and without hydronephrosis. An extrarenal pelvis is noted on the left. The kidneys enhance symmetrically. Abdominal vasculature: The abdominal aorta is normal in course and caliber. Bowel: There is no bowel obstruction. The appendix is well-visualized and normal. Peritoneum: There is no intraperitoneal free air or abdominal ascites. There is a small fat-containing umbilical hernia. Lymphadenopathy: None. Pelvic viscera: The bladder, prostate, and seminal vesicles are normal as visualized. Skeletal structures: No lytic or blastic lesions are seen. IMPRESSION: 1. Findings are consistent with acute pancreatitis. Correlate with clinical findings and serum amylase/lipase levels. 2. The gland enhances throughout and there is no evidence of organized peripancreatic fluid collection. 3. Hepatomegaly and hepatic steatosis. ACT 112: Negative or not required by law. Electronically signed by: Haim Rivera M.D. 01/21/2022 5:06 PM Chest X-Ray 01/21/22 14:53 XR chest 1V portable HISTORY: 26 years-old Male sob, abd pain acute shortness of breath COMPARISON: CT 08/03/2020 TECHNIQUE: Portable AP view of the chest FINDINGS: Cardiomediastinal and hilar silhouettes are within normal limits. No pneumothorax, pleural effusion, airspace consolidation or overt pulmonary edema. Bones of the chest appear grossly intact. IMPRESSION: No acute process. ACT 112: Negative or not required by law. The above report was generated using voice recognition software. It may contain grammatical, syntax or spelling errors. Electronically signed by: Amos Edgar M.D. 01/21/2022 3:08 PM Discharge Plan Visit Data Chief Complaint: Abdominal Pain Stated Complaint: PANCREATITIS, SHARP ABD PAIN, SOB ED Provider: Kashmir Stuart Discharge Problem: Acute pancreatitis Patient Disposition: Being Evaluated by Hospitalist Condition: Fair Forms Stand Alone Forms: [employer] Prescriptions Prescriptions: No Action fluoxetine 10 mg Tablet 15 mg PO QAM acetaminophen 325 mg tablet 650 mg PO Q4H PRN (Reason: fever or pain) Qty: 20 0RF Rx Instructions: Xito-[id number] pseudoephedrine HCl [Sudogest] 60 mg Tablet 60 mg PO Q6H PRN (Reason: Congestion) Referrals Referrals: [facility] [Primary Care Provider] -
--- NOTE | 2022-01-21 15:09 | XRay Report ---
XR chest 1V portable HISTORY: 26 years-old Male sob, abd pain acute shortness of breath COMPARISON: CT 08/03/2020 TECHNIQUE: Portable AP view of the chest FINDINGS: Cardiomediastinal and hilar silhouettes are within normal limits. No pneumothorax, pleural effusion, airspace consolidation or overt pulmonary edema. Bones of the chest appear grossly intact. IMPRESSION: No acute process. ACT 112: Negative or not required by law. The above report was generated using voice recognition software. It may contain grammatical, syntax o r spelling errors. Electronically signed by: Amos Edgar M.D. 01/21/2022 3:08 PM
[2022-01-21 15:44] LABS: Basophils # (auto) 0.08 K/uL (0-0.2); Basophils % (auto) 0.8 %; Eosinophils % (auto) 3.9 %; Hemoglobin 14.4 g/dl (14.0-18.0); Immature Granulocytes # (auto) 0.08 K/uL (0.00-0.02); Immature Granulocytes % (auto) 0.8 %; Lymphocytes # (auto) 1.41 K/uL (1.2-3.4); Lymphocytes % (auto) 13.8 %; Mean Corpuscular Hemoglobin 31.4 pg (25.0-34.0); Mean Corpuscular Hgb Conc 34.3 g/dL (32.0-36.0); Mean Corpuscular Volume 91.7 fL (80.0-100.0); Mean Platelet Volume 10.4 fL (9.4-12.4); Monocytes # (auto) 0.57 K/uL (0.24-0.82); Monocytes % (auto) 5.6 %; Neutrophils # (auto) 7.65 K/uL (1.4-6.5); Neutrophils % (auto) 75.1 %; Platelet Count 232 K/uL (130-400); RDW Coefficient of Variation 11.8 % (11.5-14.5); RDW Standard Deviation 39.2 fL (36.4-46.3); Red Blood Count 4.58 M/uL (4.63-6.08); White Blood Count 10.19 K/ul (4.8-10.8)
[2022-01-21 15:54] LABS: Prothrombin Time 10.6 Seconds (9.0-12.0)
[2022-01-21 16:21] LABS: Troponin I High Sensitivity 3.1 pg/ml (0-20)
[2022-01-21 16:35] LABS: BUN Creatinine Ratio 16.2 (10-20); Calcium 9.2 mg/dl (8.5-10.1); Creatinine Clr Calc Pharmacy 131.5 ml/min; Est GFR (African American) 119.6 ml/min; Est GFR (Non-African American) 103.2 ml/min; Potassium 4.1 mmol/L (3.5-5.1)
--- NOTE | 2022-01-21 16:36 | Electrocardiogram Report ---
Test Reason : Blood Pressure : / mmHG Vent. Rate : 051 BPM Atrial Rate : 051 BPM P-R Int : 164 ms QRS Dur : 092 ms QT Int : 442 ms P-R-T Axes : 059 075 064 degrees QTc Int : 407 ms Sinus bradycardia Otherwise normal ECG No previous ECGs available Confirmed by Adrian Quijano ([id number]) on 01/21/2022 4:35:34 PM Referred By: REFERRED SELF Confirmed By:Adrian Quijano
[2022-01-21 16:51] LABS: Albumin Globulin Ratio 1.7 (0.9-2); Albumin Level 4.7 gm/dl (3.4-5.0); Bilirubin,Total 0.7 mg/dl (0.2-1.0); Globulin 2.8 gm/dl (2.5-4.0); Total Protein 7.5 gm/dl (6.0-8.3)
[2022-01-21] MEDS ORDERED: OPTIRAY 350 100ml IV ONE (16:53)
--- NOTE | 2022-01-21 17:08 | CT Scan Report ---
CT SCAN OF THE ABDOMEN AND PELVIS WITH IV CONTRAST CLINICAL HISTORY: Upper abdominal pain. COMPARISON STUDY: Abdominal CT dated 08/03/2020. TECHNIQUE: Following the IV administration of 88 cc of Optiray 350, CT scan of the abdomen and pelvi s is performed from the lung bases to the proximal femora. Images are reviewed in the axial, sagittal , and coronal planes. IV contrast was administered without complication. A dose lowering technique wa s utilized adhering to the principles of ALARA. CT DOSE: 492.76 mGy.cm FINDINGS: Lung bases: The heart is normal in size and without pericardial effusion. The lung bases are clear. Liver: The contrast-enhanced liver is enlarged, measuring 20.3 cm in length. The liver demonstrates d iffusely diminished attenuation indicating hepatic steatosis. Fatty sparing is seen adjacent to the g allbladder fossa. There is no intrahepatic biliary ductal dilatation. The hepatic veins and portal ve ins are patent. Gallbladder: Unremarkable. Spleen: Normal in size and attenuation. Pancreas: The pancreas is mildly atrophic for age. The gland enhances throughout. There is peripancre atic inflammation and fluid, greatest on the head and body. The appearance is typical for acute pancr eatitis. No organized peripancreatic fluid collection is identified. The duct is normal in caliber. T he splenic vein is patent. Adrenal glands: Unremarkable. Kidneys: The contrast enhanced kidneys are normal in size and without hydronephrosis. An extrarenal p meme is noted on the left. The kidneys enhance symmetrically. Abdominal vasculature: The abdominal aorta is normal in course and caliber. Bowel: There is no bowel obstruction. The appendix is well-visualized and normal. Peritoneum: There is no intraperitoneal free air or abdominal ascites. There is a small fat-containin g umbilical hernia. Lymphadenopathy: None. Pelvic viscera: The bladder, prostate, and seminal vesicles are normal as visualized. Skeletal structures: No lytic or blastic lesions are seen. IMPRESSION: 1. Findings are consistent with acute pancreatitis. Correlate with clinical findings and serum amylas e/lipase levels. 2. The gland enhances throughout and there is no evidence of organized peripancreatic fluid collectio n. 3. Hepatomegaly and hepatic steatosis. ACT 112: Negative or not required by law. Electronically signed by: Haim Rivera M.D. 01/21/2022 5:06 PM
[2022-01-21] MEDS ORDERED: MoRPHine SULFATE 4 MG/ML 1 ML CARP\\VIAL IV PRN (17:38)
[2022-01-21] MEDS ORDERED: LACTATED RINGER'S 1,000 ML IV ONE (17:38)
--- NOTE | 2022-01-21 18:15 | History & Physical Report ---
Date of Service January 21, 2022 Assessment & Plan (1) Acute pancreatitis: Plan: Acute Pancreatitis - Etiology likely secondary to alcohol use - BISAP score= 0 - he states that his last drink was Monday, had a beer and 3 mixed drinks. States he has 3-4 drinks about 2 nights per week - Bowel Rest- NPO with sips and ice chips - Pain: Morphine IV 2mg q2 prn - Nausea: Zofran 4 mg prn - Fluids: total of 1.5L NSS in ED, will give LR 125ml/hr. On first admission for pancreatitis in 2020, had pleural effusion after fluid resuscitation and required IV diuresis. Will give fluids cautiously. Hepatomegaly - hepatomegaly with hepatic stenosis noted on CT - prior imaging has showed hepatic stenosis - PT/INR wnl - AST/ALT slightly elevated (ALT>AST) Depression - continue escitalopram Fluids: LR @ 125ml/hr VTE prophylaxis: SCD Dispo: admit to med surg (2) Depression: History of Present Illness Chief Complaint: Abdominal Pain Primary Care Provider: [facility] 26 year old male with a past medical history of depression and pancreatitis presenting with epigastric and left upper quadrant pain. Some associated nausea and dyspnea. Similar symptoms to what he has experienced with prior episodes of pancreatitis. States that his diet over the past week has been poor; has been eating a lot of fatty foods. Prior episodes of pancreatitis suspected to be secondary to alcohol use. He states that his last drink was Monday. He had a beer and 3 mixed drinks. Denies any other substance use. He denies any vomiting, diarrhea, constipation, chest pain or dyspnea. ED course significant for [id number]. CT findings consistent with acute pancreatitis without evidence of organized peripancreatic fluid collection, in addition to hepatomegaly and hepatic steatosis. Allergies Allergy/AdvReac Type Severity Reaction Status Date / Time No Known Drug Allergies Allergy . Verified 01/21/22 21:25 Home Medications Medication Instructions Recorded Confirmed Type pseudoephedrine HCl 60 mg tablet 60 mg PO Q6H PRN Congestion 08/01/20 01/21/22 History (Sudogest) escitalopram oxalate 10 mg tablet 10 mg PO DAILY 01/21/22 01/21/22 History escitalopram oxalate 5 mg tablet 5 mg PO DAILY 01/21/22 01/21/22 History ibuprofen 200 mg tablet 200 mg PO Q6H PRN Congestion 01/21/22 01/21/22 History Past Med/Surg History Medical History (Updated 01/21/22 @ 17:43 by Kashmir Stuart M.D.) Acute alcoholic pancreatitis Asthma Depression Hx of pancreatitis Surgical History (Updated 11/23/20 @ 00:20 by Layton Armstrong PA-C) History of ankle surgery Social History Smoking Status: Never smoker Second Hand Exposure: No; Do You Dip or Chew Tobacco: No; Hx Alcohol Use: Yes Alcohol type: beer and hard liquor Hx Substance Use: Yes Last Used Substance Other:: uses occassionally Preferred Language: Turkmen Communication Ability: Effective Biostatistics Teacher Required: No Beliefs That Will Affect Care: None marital status: Single Current Living Situation: Alone current occupational status: student Other Information That Helps Us Care for You: No Feels Safe at Home: Yes Assistive Devices: Glasses Review of Systems 2 Review of Systems: As per HPI Physical Exam Physical Exam: Constitutional: well-appearing, no acute distress HEENT: NCAT, no conjunctival injection CV: regular rhythm, no murmur appreciated, extremities well-perfused, no LE edema Resp: CTABL, no wheezes/rales/rhonchi appreciated, no increased work of breathing GI: soft, nondistended, epigastric and LUQ tenderness without rebound or guarding, BS normoactive MSK: no gross deformities appreciated Skin: warm, dry, no rash appreciated Neuro: alert, oriented, no focal neurologic deficit appreciated Results & Data Results & Data ([facility]) Vital Signs (Past 12 Hours) Vital Signs Temp Pulse Pulse Resp BP BP Pulse Ox 01/21/22 17:00 54 L 18 130/80 97 01/21/22 15:11 01/21/22 15:11 52 L 18 122/75 97 01/21/22 14:26 37.1 C 57 L 22 113/70 98 O2 Del Method 01/21/22 17:00 Room Air 01/21/22 15:11 Room Air 01/21/22 15:11 Room Air 01/21/22 14:26 Room Air Code Status & VTE Plan Code Status Full Code Supervising Physician Co-Signing Physician Notes Patient seen and examined at bedside. During face to face encounter obtained a history and physical examination. I reviewed above note and agree with it. Plan of care discussed with patient and Dr. Bell. will admit for acute pancreatitis. Patient will be npo, monitor lipase Resident Activity Tracking Resident Involvement: Resident Care Provided Care Provided: Adult [facility]
[2022-01-21 19:31] LABS: Appearance Urine Clear (Clear); Bilirubin Urine Negative (Negative); Blood Urine Negative (Negative); Color Urine Yellow; Glucose Urine UA Negative (Negative); Ketones Urine Negative (Negative); Leukocyte Esterase Urine Negative (Negative); Nitrite Urine Negative (Negative); Protein Urine Negative (Negative); Specific Gravity Urine 1.038 (1.000-1.030); Urobilinogen Urine Negative (Negative); pH Urine 7.5 (4.5-7.5)
--- NOTE | 2022-01-21 21:01 | Communication Note ---
Date of Service: January 21, 2022 Reviewed patient's chart and assessed patient. Denies issues w/ fluid retention. During 07/2020 admission to [facility] for pancreatitis, did have interval development of pleural effusions thought from atelectasis vs hypervolemia and received transient Lasix. Increasing rate of IVF from 125mL/hr to 200mL/hr for treatment of acute pancreatitis. No crackles or LE edema on my exam. Spacing out prn morphine 2mg from q2h prn to q3h prn.
[2022-01-21] MEDS ORDERED: MoRPHine SULFATE 2 MG/ML CARP IV PRN ×2 (21:22→23:09)
[2022-01-21] MEDS ORDERED: ONDANSETRON INJ 2 MG/ML 2 ML VIAL IV PRN (21:22)
[2022-01-21] MEDS: LACTATED RINGER'S 1,000 ML IV SCH (21:56)
[2022-01-22] MEDS: LACTATED RINGER'S 1,000 ML IV SCH ×3 (03:20→13:46)
--- NOTE | 2022-01-22 06:53 | Hospitalist Progress Note ---
Date of Service January 22, 2022 Assessment & Plan (1) Acute pancreatitis: Plan: Kalyani Cullen is a 26 y/o male who presented to the ED on 01/21 with nausea and left upper quadrant abdominal pain. 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 On first admission for pancreatitis in 2020, had pleural effusion after fluid resuscitation and required IV diuresis. After his first episode of pancreatitis, he followed up with GI and had a repeat MRCP which showed resolution of peripancreatic inflammation. He reports that his pain began around 9:00am on 01/21. Patient states he has not had a drink since last Monday (typically has 3-4 drinks about 2 days per week), but does note that he has been eating a lot of greasy/fatty foods this week which he feels triggered his sym ptoms. Upon presentation to the ED on 01/21, Kalyani was made NPO to allow for bowel rest and started on IVF. He was given morphine as needed for pain and Zofran as needed for nausea. A CT scan was completed which showed peripancreatic inflammation, as well as hepatic steatosis (prior imaging also noted this). Blood work showed an lipase of 1141. There was also slight elevation of AST and ALT, also mild elevation of triglycerides. Overnight, Kalyani continued to receive IVF and morphine as needed. In the morning patient noted decreased pain and denied nausea/SOB/chest pain. His lab work on 01/22 showed lipase decreased slightly as well as AST and ALT. His diet was progressed to low fat/low residue at lunch and the patient tolerated it well, noting only mild discomfort after finishing his meal. Patient was counseled on the importance of greatly reducing (if not eliminating) alcohol from his diet. He was instructed to stay hydrated and eat a low fat diet upon returning home, especially for the first few days. Although the finding of hepatic steatosis was not new, the addition of slightly elevated AST, ALT should be followed up at his next appointment with his PCP. Patient was encouraged to make a hospital follow up appointment with his PCP within 1-2 weeks from the time of his discharge. Acute Pancreatitis - Etiology likely secondary to alcohol use - BISAP score= 0 - he states that his last drink was Monday, had a beer and 3 mixed drinks. States he has 3-4 drinks about 2 nights per week - Bowel Rest- Has been NPO with sips and ice chips, will progress to low fat/low residue diet today. - Pain: Morphine IV 2mg q3 prn - Nausea: Zofran 4 mg prn - Fluids: total of 1.5L NSS in ED, started on LR 125ml/hr but increased to 200ml/hr overnight. On first admission for pancreatitis in 2020, had pleural effusion after fluid resuscitation and required IV diuresis. Will give fluids cautiously. Today he has no LE edema and lungs are CTA. -If pain remains managed and tolerates progression of diet without nausea/vomiting, could look to discharge later today or tomorrow Hepatomegaly - hepatomegaly with hepatic stenosis noted on CT - prior imaging has showed hepatic steatosis - PT/INR wnl - AST/ALT slightly elevated (ALT>AST), both AST and ALT have decreased today but still slight elevation Depression - continue escitalopram 15mg Fluids: LR @ 200ml/hr VTE prophylaxis: SCD Code Status: full code (2) Depression: Admission and Anticipated Discharge Date Admission Date: January 21, 2022 Subjective Patient was seen and examined at bedside. He states that his pain is improved from yesterday, but still has some abdominal discomfort in the left upper quadrant and epigastric region. He denies any current nausea, but states he was a bit nauseous after he received his last dose of morphine over night. Denies any chest pain, shortness of breath, vomiting, or headache. Review of Systems Review of Systems: As per HPI Physical Exam Physical Exam: As per HPI Constitutional: WD/WN, vitals as above Neck: trachea midline, no thyromegaly Respiratory: normal respiratory effort, lungs clear to auscultation Cardiovascular: RRR, no murmur, no edema Gastrointestinal (Abdomen): Inspection/Auscultation: normal bowel sounds; abdomen not distended tenderness to palpation of left upper quadrant Skin: no rashes, warm and dry Psychiatric: A+Ox3, euthymic affect Results & Data Results & Data ([facility]) Vital Signs (Past 12 Hours) Vital Signs Temp Pulse Resp BP Pulse Ox O2 Del Method 01/22/22 06:19 36.4 C L 97 H 16 110/73 97 Room Air 01/21/22 23:25 36.8 C 60 18 117/74 95 Room Air 01/21/22 20:00 59 L 17 122/75 97 01/21/22 19:00 50 L 17 137/85 98 Resident Activity Tracking Resident Involvement: Resident Care Provided Care Provided: Adult Hospital Medicine
[2022-01-22 07:21] LABS: Basophils # (auto) 0.07 K/uL (0-0.2); Basophils % (auto) 0.8 %; Eosinophils # (auto) 0.43 K/uL (0-0.50); Hematocrit (blood only) 38.7 % (40.1-51.0); Hemoglobin 13.3 g/dl (14.0-18.0); Immature Granulocytes # (auto) 0.04 K/uL (0.00-0.02); Immature Granulocytes % (auto) 0.5 %; Lymphocytes # (auto) 1.95 K/uL (1.2-3.4); Lymphocytes % (auto) 22.5 %; Mean Corpuscular Hemoglobin 31.4 pg (25.0-34.0); Mean Corpuscular Hgb Conc 34.4 g/dL (32.0-36.0); Mean Corpuscular Volume 91.5 fL (80.0-100.0); Mean Platelet Volume 10.7 fL (9.4-12.4); Monocytes % (auto) 8.1 %; Neutrophils # (auto) 5.46 K/uL (1.4-6.5); Neutrophils % (auto) 63.1 %; Platelet Count 206 K/uL (130-400); RDW Coefficient of Variation 11.8 % (11.5-14.5); RDW Standard Deviation 39.1 fL (36.4-46.3); Red Blood Count 4.23 M/uL (4.63-6.08); White Blood Count 8.65 K/ul (4.8-10.8)
[2022-01-22 08:12] LABS: Albumin Globulin Ratio 1.7 (0.9-2); Albumin Level 4.1 gm/dl (3.4-5.0); BUN Creatinine Ratio 12.5 (10-20); Bilirubin,Total 0.7 mg/dl (0.2-1.0); Calcium 8.5 mg/dl (8.5-10.1); Chol HDL Ratio 4.4 (0-5); Est GFR (African American) 135.5 ml/min; Est GFR (Non-African American) 116.9 ml/min; Globulin 2.4 gm/dl (2.5-4.0); Magnesium 1.9 mg/dl (1.7-2.4); Phosphorus 3.2 mg/dl (2.5-4.9); Potassium 3.8 mmol/L (3.5-5.1); Total Protein 6.5 gm/dl (6.0-8.3)
[2022-01-22] MEDS ORDERED: ESCITALOPRAM OXALATE 10 MG TAB PO SCH (09:00)
[2022-01-22] MEDS ORDERED: ACETAMINOPHEN 500 MG TAB PO STA (15:55)
[2022-01-22 16:18] VITALS: BP 110/70; PULSE 68; TEMP 98.1; O2SAT 95
--- NOTE | 2022-01-22 18:05 | Discharge Summary ---
Date of Service January 22, 2022 Admission HPI Per Admitting Provider 26 year old male with a past medical history of depression and pancreatitis presenting with epigastric and left upper quadrant pain. Some associated nausea and dyspnea. Similar symptoms to what he has experienced with prior episodes of pancreatitis. States that his diet over the past week has been poor; has been eating a lot of fatty foods. Prior episodes of pancreatitis suspected to be secondary to alcohol use. He states that his last drink was Monday. He had a beer and 3 mixed drinks. Denies any other substance use. He denies any vomiting, diarrhea, constipation, chest pain or dyspnea. ED course significant for [id number]. CT findings consistent with acute pancreatitis without evidence of organized peripancreatic fluid collection, in addition to hepatomegaly and hepatic steatosis. Admission Exam Per Admitting Provider Constitutional: well-appearing, no acute distress HEENT: NCAT, no conjunctival injection CV: regular rhythm, no murmur appreciated, extremities well-perfused, no LE edema Resp: CTABL, no wheezes/rales/rhonchi appreciated, no increased work of breathing GI: soft, nondistended, epigastric and LUQ tenderness without rebound or guarding, BS normoactive MSK: no gross deformities appreciated Skin: warm, dry, no rash appreciated Neuro: alert, oriented, no focal neurologic deficit appreciated Principal Diagnosis Pancreatitis Discharge Exam As per HPI Constitutional WD/WN, vitals as above Neck trachea midline, no thyromegaly Respiratory normal respiratory effort, lungs clear to auscultation Cardiovascular RRR, no murmur, no edema Gastrointestinal (Abdomen) Inspection/Auscultation: normal bowel sounds; abdomen not distended Skin no rashes, warm and dry Psychiatric A+Ox3, euthymic affect Discharge Data Allergies Allergy/AdvReac Type Severity Reaction Status Date / Time No Known Drug Allergies Allergy . Verified 01/21/22 21:25 Consultations 01/21/22 17:38 ED Decision to Admit Stat Ordered Studies 01/21/22 14:52 CT abd pelvis IV con only Stat Hospital Course (1) Acute pancreatitis: Kalyani Cullen is a 26 y/o male who presented to the ED on 01/21 with nausea and left upper quadrant abdominal pain. 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 On first admission for pancreatitis in 2020, had pleural effusion after fluid resuscitation and required IV diuresis. After his first episode of pancreatitis, he followed up with GI and had a repeat MRCP which showed resolution of peripancreatic inflammation. He reports that his pain began around 9:00am on 01/21. Patient states he has not had a drink since last Monday (typically has 3-4 drinks about 2 days per week), but does note that he has been eating a lot of greasy/fatty foods this week which he feels triggered his symptoms. Upon presentation to the ED on 01/21, Kalyani was made NPO to allow for bowel rest and started on IVF. He was given morphine as needed for pain and Zofran as needed for nausea. A CT scan was completed which showed peripancreatic inflammation, as well as hepatic steatosis (prior imaging also noted this). Blood work showed an lipase of 1141. There was also slight elevation of AST and ALT, also mild elevation of triglycerides. Overnight, Kalyani continued to receive IVF and morphine as needed. In the morning patient noted decreased pain and de nied nausea/SOB/chest pain. His lab work on 01/22 showed lipase decreased slightly as well as AST and ALT. His diet was progressed to low fat/low residue at lunch and the patient tolerated it well, noting only mild discomfort after finishing his meal. As patient's symptoms had improved and he was able to tolerate meals, he was discharged Monday evening (01/22) Patient was counseled on the importance of greatly reducing (if not eliminating) alcohol from his diet. He was instructed to stay hydrated and eat a low fat diet upon returning home, especially for the first few days. Although the finding of hepatic steatosis was not new, the addition of slightly elevated AST, ALT should be followed up at his next appointment with his PCP. Patient was encouraged to make a hospital follow up appointment with his PCP within 1-2 weeks from the time of his discharge. (2) Depression: Total Time Total Time Spent Total Time Spent (In Minutes): . Discharge Plan Discharge Items Patient Disposition: Home - Self-Care Reason For Visit: PANCREATITIS Discharge Diagnosis: Pancreatitis Condition on Discharge: Fair Activity: Per Instructions section Non-emergency contact: Primary Care Provider Call non-emergency contact if: your symptoms worsen, your pain is not controlled and your pain is worsening Follow-up/Referrals: [facility] [Primary Care Provider] - Diet: Low Fat Addtl Attending Provider Instructions: Acute Pancreatitis * You were found to have elevated an elevated enzyme in your blood called "lipase", which is indicative of pancreatitis. * A CT scan of your abdomen also confirmed inflammation of the pancreas * To treat pancreatitis, you were put on "bowel rest"/fasting with only water for a period of time and also given IV fluids to keep you hydrated * You were also given some IV pain medication (morphine) for your abdominal pain * After your night in the hospital, your blood tests were rechecked and showed some improvement and you were restarted on a low fat/low residue diet * Since your pain is improved and you were able to eat some food, we discharged you from the hospital. Discharge Information +Restrict alcohol consumption as much as possible, likely contributed to previous pancreatitis presentations. +Eat a low fat diet for at least several days, eliminate greasy/fatty foods which can trigger pancreatitis and make your pain worse +Drink plenty of water, stay hydrated +Follow up with your primary care doctor in 1-2 weeks for hospital follow up. +On your CT scan, your liver was found to have some fatty changes ("hepatic steatosis") and your blood tests showed some slight elevations in AST and ALT (liver function tests). These findings should be followed up on at your appointment with your primary care doctor as well. Pending Studies at Discharge: No Stand-Alone Forms: My [facility] [employer], Smoking Cessation Medications and DC Order Prescriptions: Continued ibuprofen 200 mg Tablet 200 mg PO Q6H PRN (Reason: Congestion) escitalopram oxalate 10 mg tablet 10 mg PO DAILY Rx Instructions: Take with 5 mg tab = 15 mg escitalopram oxalate 5 mg tablet 5 mg PO DAILY pseudoephedrine HCl [Sudogest] 60 mg Tablet 60 mg PO Q6H PRN (Reason: Congestion) Discharge Orders: Discharge Order (Routine); Ordered 01/22/22 Ordered By: Erlinda Etienne Admission Data Admit Date/Time: 01/21/22 18:56 Attending Provider: Jane Cano Admit Provider: Mónica Bell Primary Care Provider: [place] [facility] Other Providers: Richard Willis Other Interventions: Discharge Summary Assessment (RN) Last Done: 01/22/22 18:22 Supervising Physician Co-Signing Physician Notes Resident Physician Supervision Note: I independently interviewed and examined the patient and verified the leon history and physical, reviewed labs and image studies and agree with resident findings and care plan.
--- NOTE | 2022-01-27 23:32 | Billing Data ---
Date of Service January 21, 2022 Coding Level of Care Code INT OBSERVATION CARE 70M LVL 3
== END 2022-01-22 18:42 | disposition home or self-care (01) ==
LOC: ED 14:10 → 3W 14:10 → SUATTDRO 18:56 → 3W 21:02
DX: K76.0 Fatty (change of) liver, not elsewhere classified; K85.90 Acute pancreatitis without necrosis or infection, unspecified; Z79.899 Other long term (current) drug therapy; R16.0 Hepatomegaly, not elsewhere classified